=== PATIENT | female | born 1940 | race Caucasian/White ===

== ENCOUNTER 2024-07-15 21:17 | Inpatient (IN) | payer MEDICARE, SELFPAY ==
[2024-07-15] VITALS (15 sets, daily range): BP systolic 79–145; BP diastolic 25–95; BMI 33.3
[2024-07-15 16:48] LABS: Hematocrit 16.8 % (37.0-47.0); Hemoglobin 5.7 g/dL (12.0-16.0); Mean Corp Hgb Conc. 33.9 g/dL (33.0-37.0); Mean Corpuscular Hgb 29.5 pg (27.0-31.0); Mean Platelet Volume 8.7 fL (7.4-10.4); Platelet Count 284 10^3/uL (130-400); Red Blood Cell Count 1.93 10^6/uL (4.20-5.40); Red Cell Dist. Width 16.4 % (11.5-14.5); White Blood Cell Count 12.9 10^3/uL (4.8-10.8)
[2024-07-15 16:56] LABS: ALT (SGPT) 20 U/L (0-35); AST (SGOT) 33 U/L (14-36); Albumin 3.8 g/dl (3.5-5.0); Alkaline Phosphatase 106 U/L (38-126); Blood Urea Nitrogen 59 mg/dl (7-17); Calcium 8.2 mg/dl (8.4-10.2); Carbon Dioxide 23 mmol/L (22-30); Chloride 92 mmol/L (98-107); Glucose 163 mg/dl (70-99); Potassium 4.6 mmol/L (3.5-5.1); Sodium 127 mmol/L (135-145); Total Bilirubin 0.4 mg/dl (0.2-1.3); eGFR 44.91
[2024-07-15 17:09] LABS: Absolute Neutrophils -Man Diff 6.9 10^3/uL (1.4-6.5); Anisocytosis 3+; Atypical Lymphocytes 4 %; Band Neutrophils 0 % (0-3); Eosinophils 2 % (0-6); Lymphocytes 37 % (20-51); Monocytes 3 % (2-9); Normal RBC Morphology No; Nucleated Red Blood Cells 1 (-); Platelets Checked Yes; Polychromasia 2+; Segmented Neutrophils 54 % (42-75)
[2024-07-15 17:11] LABS: Hypochromasia 2+; Total Cells Counted 100
--- NOTE | 2024-07-15 18:42 | ED.GENMED ---
History of Present Illness
General
Chief Complaint: Abnormal Lab Value
Time Seen by Provider: 07/15/24 18:13
History of Present Illness
History of Present Illness:
83-year-old female with history of A-fib on apixaban presenting to the emergency department from [facility] with low hemoglobin. At nursing facility, noted to be 5.8. Patient on arrival denies any acute complaints. Denies chest pain,
difficulty breathing, abdominal pain. She denies seeing any blood in her stool. She denies any known history of blood transfusions, however appears confused on arrival, oriented to person and place only. No additional history obtained at this time
Phy Exam
Physical Exam
Physical Exam:
General: Well-appearing, no clinical signs of dehydration, nontoxic and in no acute distress
HEENT: protecting airway
Neck: appears supple
CV: Normal heart rate, regular rhythm
Resp: No accessory muscle use, no increased work of breathing, lungs clear to auscultation bilaterally
Abd: Soft and non-distended, no tenderness to palpation
Extremities: No deformities, no swelling, no erythema, pulses and sensation intact
Neuro: alert, oriented to person and place
: Melena, Hemoccult positive
Rectal: deferred
Psych: Normal affect
Skin: Intact
Course
Orders/Labs/Results
Orders:
Orders
07/15/24 Dinner
Clear Liquid
07/15/24 16:20
Type And Crossmatch [Type+Screen] Urgent
Complete Blood Count/With Diff Urgent
Comprehensive Metabolic Panel Urgent
Manual Differential Urgent
07/15/24 18:34
ABO2 Routine
BBK Wristband Number:
Associate notified that ABO2 has been ordered: [id number]
Date: 07/15/24
Time: 16:37
Pick And Shovel Man ID: [id number]
07/15/24 18:39
* Blood Bank Products Urgent
Blood Bank Products: *Packed RBC Leuko(PRBC's)
Quantity: 2
Transfuse Today: Yes
Reason: Bleeding
07/15/24 20:25
Admit/Transfer Patient As Directed
Co-Sign Provider:
Level of Care: Inpatient admission
Assign to:: Telemetry
Physician / Group: hospitalist
Diagnosis: anemia
Reason for Telemetry: Other
Other Reason for Telemetry: gi bleed
Date to Stop Telemetry: 07/17/24
Time to Stop Telemetry: 11:00
Reason for Hospitalization: symptomatic anemia
Expected length of stay greater than two midnights?: Yes
ELOS- Estimated Length of Stay in days: 2
I certify the patient meets the requirements for IP care: Yes
PRN Pain Medication Management As Directed
May give lesser potent ordered pain med per pt: Yes
preference::
Protocol:: Medication orders for pain may be administered in a
manner that supports deferring to patient preference
when the pt is:
- Requesting an ordered lesser potent pain medication.
Least to most potent pain medications are defined
as: acetaminophen < NSAID < tramadol < opioids
(morphine, oxycodone, hydromorphone).
- Requesting a lesser dose of the same medication IF
ORDERED.
- Requesting a less intrusive route of administration
if both routes are prescribed by the provider (PO <
IV).
07/15/24 20:28
Code Status As Directed
Resuscitation Status: Full Code
07/15/24 20:31
0.9% Sodium Chloride [Nss (Preservative Free)] 10 ml IV NOW STA
Pantoprazole [Protonix IV] 40 mg IV NOW STA
07/15/24 22:00
Flush (0.9% Sodium Chloride) [Flush (Nss)] See Dose Instructions IV PER PROTOCOL
07/15/24 22:24
Gabapentin [Neurontin] 300 mg PO HS
Ondansetron Injectable [Zofran] 4 mg IV Q6HPRN PRN
Rosuvastatin Calcium [Crestor] 10 mg PO HS
07/15/24 22:24
Osmolality, Random Urine Routine
Urine Sodium Routine
Activity As Directed
Activity Level: With Assistance
Bedside Glucose Monitoring As Directed
Frequency: AC&HS
INT (Intravenous Needle Therapy) As Directed
Comment: Place 2 IV catheters of the largest bore possible until stable
Orthostatic Vital Signs As Directed
Orthostatic VS Frequency: Now
Comment: then every four hours for twenty-four hours
Pneumatic Compression Sleeves As Directed
Type: Knee high
Vital Signs As Directed
Frequency: Per unit guidelines
DX Deep Vein Thrombosis Video Routine
07/16/24 06:00
Basic Metabolic Panel IN AM
Complete Blood Count/No Diff IN AM
Levothyroxine [Synthroid] 75 mcg PO DAILY @ 0600
07/16/24 07:30
Insulin Aspart Corrective Low [Novolog Flexpen-Low Resistance] See Protocol SC AC
07/16/24 08:00
Carvedilol [Coreg] 6.25 mg PO BID
Dapagliflozin [Farxiga] 10 mg PO DAILY
Pantoprazole [Protonix IV] 40 mg IV BID
Pramipexole [Mirapex] 0.125 mg PO BID
07/16/24 12:00
Spironolactone [Aldactone] 12.5 mg PO NOON
07/16/24 14:00
H&H Q8H
07/17/24 11:00
DC Protocol for Telemetry ONCE
Abnormal Lab Results
07/15/24
16:20
WBC 12.9 H 10^3/uL
(4.8-10.8)
RBC 1.93 L 10^6/uL
(4.20-5.40)
Hgb 5.7 L* g/dL
(12.0-16.0)
Hct 16.8 L* %
(37.0-47.0)
RDW 16.4 H %
(11.5-14.5)
Abs Neuts (Manual) 6.9 H 10^3/uL
(1.4-6.5)
Sodium 127 L mmol/L
(135-145)
Chloride 92 L mmol/L
(98-107)
BUN 59 H mg/dl
(7-17)
Creatinine 1.2 H mg/dL
(0.6-1.0)
Glucose 163 H mg/dl
(70-99)
Calcium 8.2 L mg/dl
(8.4-10.2)
Crossmatch IS Only See Detail
07/15/24 16:20
07/15/24 16:20
Vital Signs
Initial and Last Documented VS:
Initial Vital Signs
Temp Pulse Resp BP Pulse Ox
98.1 F 61 18 94/81 100
07/15/24 16:08 07/15/24 16:08 07/15/24 16:08 07/15/24 16:08 07/15/24 16:08
Last Documented Vital Signs
Temp Pulse Resp BP Pulse Ox
97.9 F 61 20 145/53 100
07/15/24 22:45 07/15/24 22:45 07/15/24 22:45 07/15/24 22:45 07/15/24 22:11
MDM/Problems Addressed
MDM/Problems Addressed:
83-year-old female with history of A-fib on apixaban presenting for low hemoglobin from nursing facility. Vital signs on arrival are significant for mildly low blood pressure.
On exam, patient is in no acute distress. Patient had laboratory analysis prior to my assessment, low hemoglobin. On Hemoccult testing, Hemoccult positive, melena. Did discuss with son, who notes that patient was recently admitted to [facility] a few weeks ago, with similar issue, did require transfusion. At that time, her anticoagulation was stopped, and then resumed once she stopped having blood in her stool. He notes that she did not have any colonoscopy at that time because
the bleeding had stopped. Son did consent for patient to be transfused. Consent signed. At this time feel patient warrants admission for GI bleed and anemia. Patient will be admitted to hospital service, likely GI consultation.
*Critical Care Note
Total Time (30-74mins, 75-104mins- exclusive of procedures): 36
comment:
The high probability of a clinically significant, sudden or life threatening deterioration of the hemodynamic system(s) required my full and direct attention, intervention and personal management. The aggregate critical care time was 36 minutes.
This time is in addition to time spent performing reported procedures but includes the following:
[x] Data Review and interpretation
[x] Patient assessment and monitoring of vital signs
[x] Documentation
[x] Medication orders and management
ED Attending Note
-
Portions of this chart may have been created with voice recognition software.� Occasional wrong word or��sound alike� substitutions may have occurred due to the inherent limitations of voice recognition software.
Discharge Plan
Departure
Patient Disposition: Admit
Date of Disposition: 07/15/24
Time of Disposition: 19:07
Presentation/result/management discussed w/ accepting MD/DO: Hospitalist
Patient with high blood pressure during this ER visit?: No
Condition: Fair
Discharge Problem:
Anemia, Melena
Interventions
Interventions:
*Risk Screen - Suicide Last Done: 07/15/24 16:08
*General Assessment Last Done: 07/15/24 16:08
*Neglect/Abuse Screening Last Done: 07/15/24 16:08
*Nursing Disposition Last Done: 07/15/24 22:03
Discharge Date and Time
Discharge Date/Time: 07/15/24 22:06
--- NOTE | 2024-07-15 20:09 | HPS.HSE ---
Family Physician
-
Family Physician: Alex Sandoval MD
Chief Complaint
-
Low hemoglobin from skilled nursing
History of Present Illness
This is an 83-year-old female with past medical history significant for diabetes, atrial fibrillation on apixaban presenting from nursing facility with low hemoglobin. She was found to have a hemoglobin of 5.8 at the nursing facility today.
Patient herself has dementia and alert and oriented to person and place only. She has no acute complaints. She denies feeling dizzy or lightheaded. She denies any chest pain, shortness of breath dyspnea on exertion. She has no personal knowledge
of any melena or hematochezia. She denies any abdominal pain.
Per records it appears that she was admitted at [facility] a few weeks ago with similar low hemoglobin and required transfusion. Anticoagulation was held at that time. There was no colonoscopy or EGD done. Anticoagulation was resumed once
there was no evidence of bloody stool.
In the emergency department yesterday she was afebrile, blood pressure was 108/62 with a pulse of 63 and satting 99% on room air. Hemoglobin was 5.7 on repeat. The rest of 4 CBC was unremarkable. Sodium was 127, BUN 59 creatinine 1.2. Glucose
163.
Medical History
Past Medical History
Past Medical History: Reports Arrhythmia (Proximal atrial fibrillation.), CAD, CHF, HTN, Hypothyroidism and IDDM
Past Surgical History: Reports Other
Social History
Tobacco: Non-smoker
Alcohol: None
Drug: None
Living: [facility]
Employment: Retired
Family History
Family History: Not pertinent
Allergies / Home Medications
Allergies reflects when Allergies were last updated in [employer].
Home Medications with original date entered in [employer]
Allergy/Medication List:
Allergies
Allergy/AdvReac Type Severity Reaction Status Date / Time
No Known Allergies Allergy Unverified 07/15/24 16:07
Home Medications
acetaminophen 325 mg tablet 650 mg PO Q6HPRN PRN mild pain 07/15/24
apixaban 5 mg tablet (Eliquis) 5 mg PO BID 07/15/24
aspirin 81 mg tablet,delayed release 81 mg PO DAILY 07/15/24
bisacodyl 10 mg rectal suppository 10 mg MA DAILYPRN PRN if mom ineffective after 24 hours 07/15/24
bumetanide 2 mg tablet 2 mg PO DAILY 07/15/24
carvedilol 6.25 mg tablet (Coreg) 6.25 mg PO BID 07/15/24
cholecalciferol (vitamin D3) 50 mcg (2,000 unit) tablet (Vitamin D3) 50 mcg PO DAILY 07/15/24
dapagliflozin propanediol 10 mg tablet 10 mg PO DAILY 07/15/24
docusate sodium 100 mg capsule 100 mg PO NOON 07/15/24
gabapentin 300 mg capsule 300 mg PO HS 07/15/24
hydralazine 25 mg tablet 25 mg PO TID 07/15/24
insulin glargine 100 unit/mL subcutaneous solution 6 unit SC HS 07/15/24
insulin lispro 100 unit/mL subcutaneous pen (Humalog KwikPen (U-100) Insulin) 1 sliding scale dose SC ACHS 07/15/24
isosorbide mononitrate 30 mg tablet,extended release 24 hr 30 mg PO DAILY 07/15/24
levothyroxine 75 mcg tablet 75 mcg PO DAILY 07/15/24
magnesium hydroxide 400 mg/5 mL oral suspension (Milk of Magnesia) 30 ml PO [id number] PRN if no bm 3 days 07/15/24
omeprazole 20 mg capsule,delayed release 20 mg PO DAILY 07/15/24
pramipexole 0.125 mg tablet 0.125 mg PO BID 07/15/24
rosuvastatin 10 mg tablet 10 mg PO HS 07/15/24
spironolactone 25 mg tablet 12.5 mg PO NOON 07/15/24
zinc oxide 10 % topical cream 1 applic topical DAILYPRN PRN left buttocks wound 07/15/24
zinc oxide 10 % topical cream 1 applic topical TID left buttocks wound 07/15/24
Review of Systems
-
Constitutional: Reports No Symptoms
EENT: Reports No Symptoms
Respiratory: Reports No Symptoms
Cardiac: Reports No Symptoms
Abdomen/GI: Reports No Symptoms
: Reports No Symptoms
Musculoskeletal: Reports No Symptoms
Skin: Reports No Symptoms
Neurological: Reports No Symptoms
Endocrine: Reports No Symptoms
Hematologic/Lymphatic: Reports No Symptoms
Psych: Reports No Symptoms
Physical Exam
Vital Signs
Vital Signs
Temp Pulse Resp BP Pulse Ox
97.7 F 63 17 108/62 99
07/15/24 20:03 07/15/24 20:03 07/15/24 20:03 07/15/24 20:03 07/15/24 20:03
Physical Exam
General: Well Developed, Well Nourished, No Apparent Distress and Comfortable
HEENT: NormoCephalic, Anicteric, Moist mucous membranes and Atraumatic
Respiratory: Clear
Cardiac: S1/S2 and Regular Rhythm
Breast: Deferred by me
GI: Soft, Non Tender, Non Distended and Normal Bowel Sounds
Rectal: Hem Positive
Genito-urinary: Deferred by me
Musculoskeletal: No Clubbing, No Cyanosis and No Edema
Skin: Warm
Neuro: Awake, Alert and Nonfocal/grossly intact
Hematologic/Lymphatic: No Lymphadenopathy
Psych: Calm
Laboratory Results
-
07/15/24 16:20
07/15/24 16:20
Laboratory Results
Total Bilirubin 0.4 mg/dl (0.2-1.3) 07/15/24 16:20
AST 33 U/L (14-36) 07/15/24 16:20
ALT 20 U/L (0-35) 07/15/24 16:20
Alkaline Phosphatase 106 U/L (38-126) 07/15/24 16:20
Data Reviewed
-
Lab Data: Labs Reviewed by me
Old Records: Reviewed
Impression/Plan
-
IMPRESSION:
Patient on anticoagulation who presented with symptomatic anemia and hemoglobin of 5.8. Appears to have a history of melena/GI bleed while on anticoagulation and was admitted to outside hospital a few weeks ago with similar presentation. No
colonoscopy was done at that time. Anticoagulation interrupted and then restarted once no further evidence of GI bleed.
PLAN:
1. Anemia - Suspect recurrent low grade GI bleed secondary to AC
- admit to telemetry
- clear diet for now
- tranfuse 2 units prbc
- hold aspirin and apixaban
- H&H q 8
- given prior melena will start iv ppi bid for now
- fecal occult testing
- GI consult
2. AFIB
- holding apixaban
- continue carvedilol with hold parameters
3. CHF - Euvolemic on exam
- continue bumex with hold parameters
- continue imdur dialy
- hold hyralazine for now
- continue spironalactone and farxiga
4. DM II
- insulin sliding scale while on clear liquid diet
5. Hyponatremia - Likely chronic no priors here
- check urine studies
- hold bumex
- correct anemia and re-evaluate
DVT PPX - SCD for now
Code status - full code
[2024-07-15] MEDS: NSS (PRESERVATIVE FREE) 10 ML IV (20:51)
[2024-07-15] MEDS: PROTONIX IV 40 MG IV (20:51)
[2024-07-15 23:23] LABS: Glucose - Point of Care 156 mg/dl (70-99)
[2024-07-15] MEDS: CRESTOR 10 MG PO (23:29)
[2024-07-15] MEDS: NEURONTIN 300 MG PO (23:29)
[2024-07-16] VITALS (7 sets, daily range): BP systolic 124–152; BP diastolic 47–62; BMI 33.1
--- NOTE | 2024-07-16 02:06 | VATNOTE ---
Addendum entered by Esperanza Mcdowell RN 07/16/24 02:11:
Nursing Web Retailer aware and if need be will have another nurse from the ER attempt.
Original Note:
07/16 Patient ordered for 2 IV's. Attempted x2 without success. Spoke to PCN who states patient is finished with her blood and does not have any other IV medications until the AM, OK if another IV team nurse attempts on day shift. PCN aware to
call if anything changes and this RN will look again and call nursing food preparation supervisor.
[2024-07-16] MEDS: SYNTHROID 75 MCG PO (05:42)
[2024-07-16 08:05] LABS: Glucose - Point of Care 136 mg/dl (70-99)
[2024-07-16 08:18] LABS: Hematocrit 23.4 % (37.0-47.0); Hemoglobin 8.1 g/dL (12.0-16.0); Mean Corp Hgb Conc. 34.6 g/dL (33.0-37.0); Mean Corpuscular Volume 86.7 fL (81.0-99.0); Mean Platelet Volume 8.9 fL (7.4-10.4); Platelet Count 225 10^3/uL (130-400); Red Cell Dist. Width 14.8 % (11.5-14.5); White Blood Cell Count 8.3 10^3/uL (4.8-10.8)
[2024-07-16 08:52] LABS: Blood Urea Nitrogen 50 mg/dl (7-17); Carbon Dioxide 25 mmol/L (22-30); Chloride 96 mmol/L (98-107); Estimated Creatinine Clearance 36 ml/min; Glucose 123 mg/dl (70-99); Sodium 128 mmol/L (135-145)
[2024-07-16] MEDS: NOVOLOG FLEXPEN-LOW RESISTANCE SC ×2 (09:09→16:38)
[2024-07-16] MEDS: MIRAPEX 0.125 MG PO ×2 (09:10→20:22)
[2024-07-16] MEDS: COREG 6.25 MG PO ×2 (09:10→20:22)
[2024-07-16] MEDS: FARXIGA 10 MG PO (09:10)
[2024-07-16] MEDS: PROTONIX IV 40 MG IV ×2 (09:11→20:23)
[2024-07-16] MEDS: NSS (PRESERVATIVE FREE) 10 ML IV ×2 (09:12→20:24)
--- NOTE | 2024-07-16 10:25 | CM ---
Patient is from [facility] as a Short term Rehab patient for rehab and per liaison will be able to return to SNF when medically appropriate. CM will send updated clinical information to facility. CM will review discharge plan with patient and
family.
--- NOTE | 2024-07-16 11:48 | CON.GI ---
Addendum entered and electronically signed by Padmaja Becker MD 07/16/24 15:58:
I saw and examined the patient.
The ELECTROTYPE MOLDER or PA's note was reviewed and I agree with the note.
Comment: 83-year-old female with history of paroxysmal A-fib on Eliquis, history of dementia, diabetes, CAD, CHF brought in from [facility] with low hemoglobin, noted to have hemoglobin of 5.8. Limited history given underlying
dementia. On reviewing records, evidence of black stool prior to admission and heme positive stool which was, dark in the Emergency room. As per family, patient was admitted to [facility] with similar complaints with low hemoglobin, endoscopy
evaluation was not pursued, hemoglobin stabilized and she was subsequently started back on the anticoagulation with Eliquis. Possible remote history of colonoscopy but unclear findings or timing. She received 2 units of packed red blood cells and
her hemoglobin currently is up at 8.6.
Patient is currently on clear liquid diet and tolerating it well.
-Anemia with heme positive black stool, rule out ulcer disease, AVMs, colon polyps versus other
Continue Protonix 40 mg IV twice daily
Continue clear liquid diet for now
She will need upper endoscopy after Eliquis washout (unclear when the last dose was but patient arrived 07/15/2024)
Patient's son Gene will be in tomorrow and will be discussing with patient as well and will get back to us regarding decision for endoscopy evaluation.
Monitor H&H and transfuse if hemoglobin less than 8.0.
Sodium level monitored by primary team
Will follow
Original Note:
Consultation
-
Date/Time Consultation Requested: 07/16/24 1015
Date/Time Consultation Performed: 07/16/24 1145
Requesting Provider: Johnathon Yoon MD
Performing Provider: VICKIE Aragon
Reason for Consultation: GI bleed
Medical History
Chief Complaint / HPI
Chief Complaint: anemia
History of Present Illness:
Pt is an 83yo with hx PAF on Eliquis, CAD, CHF, HTN, hypothyroidism, IDDM, dementia with noted hbg 5.8 on SNF. pt was given 2 units PRBC's and noted hbg 8.1 today with na 127, BUN 59, creat 1.3. Pt was also noted with hyponatremia on admission.
Stool in ER with Melena/heme +and brown/black stool small amount since admission. No prior admission to . Per chart prior admission to [facility] with with low hbg and transfusion. Per family he bleeding had stopped and anticoagulation was
restarted. Per family Eliquis may have started in May. Family unsure about prior GI testing. Pt states distant hx colonoscopy in past. Pt currently denies GI symptom of odynophagia, dysphagia, GERD, abdominal pain, diarrhea, constipation,
blood or black in stools.
Past Medical History
Past Medical History: Arrhythmias (afib ), CAD, CHF, HTN, Hypothyroidism, IDDM and Psychiatric (dementia )
Social History
Tobacco: Non-Smoker
Alcohol: None
Drug: None
Living: Half-Way
Employment: Retired
Family History
Family History: Other (pt denies family hx GI issues )
Allergies / Home Medications
Allergy/AdvReac Type Severity Reaction Status Date / Time
No Known Allergies Allergy Unverified 07/15/24 16:07
�Medication �Instructions �Recorded
acetaminophen 325 mg tablet 650 mg PO Q6HPRN PRN mild pain 07/15/24
apixaban 5 mg tablet (Eliquis) 5 mg PO BID Blood Clot 07/15/24
Prevention/Tx
aspirin 81 mg tablet,delayed 81 mg PO DAILY Blood Clot 07/15/24
release Prevention/Tx
bisacodyl 10 mg rectal suppository 10 mg [place] DAILYPRN PRN if mom 07/15/24
ineffective after 24 hours
bumetanide 2 mg tablet 2 mg PO DAILY Fluid 07/15/24
Retention/Swelling
carvedilol 6.25 mg tablet (Coreg) 6.25 mg PO BID Heart 07/15/24
Disease/Condition
cholecalciferol (vitamin D3) 50 50 mcg PO DAILY Supplement 07/15/24
mcg (2,000 unit) tablet (Vitamin
D3)
dapagliflozin propanediol 10 mg 10 mg PO DAILY Diabetes 07/15/24
tablet
docusate sodium 100 mg capsule 100 mg PO NOON Constipation 07/15/24
gabapentin 300 mg capsule 300 mg PO HS 07/15/24
hydralazine 25 mg tablet 25 mg PO TID Blood Pressure 07/15/24
insulin glargine 100 unit/mL 6 unit SC HS Diabetes 07/15/24
subcutaneous solution
insulin lispro 100 unit/mL 1 sliding scale dose SC ACHS 07/15/24
subcutaneous pen (Humalog KwikPen Diabetes
(U-100) Insulin)
isosorbide mononitrate 30 mg 30 mg PO DAILY Heart 07/15/24
tablet,extended release 24 hr Disease/Condition
levothyroxine 75 mcg tablet 75 mcg PO DAILY Thyroid 07/15/24
magnesium hydroxide 400 mg/5 mL 30 ml PO [id number] PRN if no bm 3 07/15/24
oral suspension (Milk of Magnesia) days
omeprazole 20 mg capsule,delayed 20 mg PO DAILY Gastrointestinal 07/15/24
release Issue
pramipexole 0.125 mg tablet 0.125 mg PO BID Neurological 07/15/24
Condition
rosuvastatin 10 mg tablet 10 mg PO HS High Cholesterol 07/15/24
spironolactone 25 mg tablet 12.5 mg PO NOON Fluid 07/15/24
Retention/Swelling
zinc oxide 10 % topical cream 1 applic topical DAILYPRN PRN left 07/15/24
buttocks wound
zinc oxide 10 % topical cream 1 applic topical TID left buttocks 07/15/24
wound
Review of Systems
-
Unable to obtain full review of systems at this time due to: Dementia
History Source: Patient and Family
Constitutional: Reports No Symptoms
EENT: Reports No Symptoms
Respiratory: Reports No Symptoms
Cardiac: Reports No Symptoms
Abdomen/GI: Reports Black Stools
: Reports No Symptoms
Musculoskeletal: Reports No Symptoms
Neurological: Reports Weakness
Endocrine: Reports No Symptoms
Hematologic/Lymphatic: Reports Bleeding
Vital Signs
Temp Pulse Resp BP Pulse Ox
98.9 F 61 20 124/56 100
07/16/24 07:45 07/16/24 07:45 07/16/24 07:45 07/16/24 07:45 07/16/24 07:45
Physical Exam
Exam
General: Well Developed, Well Nourished and No Apparent Distress
HEENT: Normocephalic and Anicteric
Respiratory: Clear
Cardiac: Regular Rhythm and Murmur
GI: Soft, Non Tender and Non Distended
Musculoskeletal: No Clubbing and No Cyanosis
Skin: Warm and Dry
Neuro: Awake, Alert and Other (hx dementia but answering most questions appropriately )
Psych: Calm
Results
WBC 8.3 10^3/uL (4.8-10.8) 07/16/24 06:43
Hgb 8.1 g/dL (12.0-16.0) L D 07/16/24 06:43
Hct 23.4 % (37.0-47.0) L 07/16/24 06:43
MCV 86.7 fL (81.0-99.0) 07/16/24 06:43
Plt Count 225 10^3/uL (130-400) D 07/16/24 06:43
Sodium 128 mmol/L (135-145) L 07/16/24 06:43
Potassium 4.0 mmol/L (3.5-5.1) 07/16/24 06:43
Chloride 96 mmol/L (98-107) L 07/16/24 06:43
Carbon Dioxide 25 mmol/L (22-30) 07/16/24 06:43
BUN 50 mg/dl (7-17) H 07/16/24 06:43
Creatinine 1.3 mg/dL (0.6-1.0) H 07/16/24 06:43
Calcium 8.0 mg/dl (8.4-10.2) L 07/16/24 06:43
Total Bilirubin 0.4 mg/dl (0.2-1.3) 07/15/24 16:20
AST 33 U/L (14-36) 07/15/24 16:20
ALT 20 U/L (0-35) 07/15/24 16:20
Alkaline Phosphatase 106 U/L (38-126) 07/15/24 16:20
Diagnostic Image Results:
Prior GI Procedures:
EGD: none
Colonoscopy: ? years ago
Assessment / Plan
-
Pt is an 83yo with hx PAF on Eliquis, CAD, CHF, HTN, hypothyroidism, IDDM, dementia with noted hbg 5.8 on SNF. pt was given 2 units PRBC's and noted hbg 8.1 today with na 127, BUN 59, creat 1.3. Pt was also noted with hyponatremia on admission.
Stool in ER with Melena/heme +and brown/black stool small amount since admission. No prior admission to . Per chart prior admission to [facility] with with low hbg and transfusion. Per family he bleeding had stopped and anticoagulation was
restarted. Per family Eliquis may have started in May. Family unsure about prior GI testing. Pt states distant hx colonoscopy in past. Pt currently denies GI symptom of odynophagia, dysphagia, GERD, abdominal pain, diarrhea, constipation,
blood or black in stools.
-anemia with black stool in ER
-PAF on Eliquis / newly added in May per family
-hyponatremia
other med problems:
-CAD
-CHF
-HTN
-Hypothyroidism
-IDDM
-dementia
PLAN:
etiology of anemia with dark stool and elevated BUN related to UGI bleeding with ? newly added Eliquis - PUD, ectasia, mass vs lower GI source vs other
pt currently declined GI testing but noted with hx dementia
I reviewed wtih son Gene -- he will be in tomorrow to review with patient
I discussed with son options of scope EGD +/- colon vs hold Anticoagulation with risks vs cont to follow hbg and high risk for return
cont Eliquis wash out last dose 07/15 at [facility]
cont PPI BID
monitor stools
cont to correct Na per medical team prior to possible GI testing
will follow
-
-
Thank you for consultation and allowing me to participate in the patient's care. Please call the operations supervisor 2nd shift GI physician during the after hours with any questions or concerns.
[2024-07-16 13:09] LABS: Glucose - Point of Care 202 mg/dl (70-99)
--- NOTE | 2024-07-16 13:10 | CM ---
Patient seen at bedside. Patient is a Short term care patient at [facility]. CM spoke with liaison at [place] and confirmed that patient is short term care, and can return when medically appropriate, pending bed. Patient son confirmed that patient
can return to SNF when medically appropriate and liaison also confirmed. CM will send updated clinical information via all scripts. Patient original home was a 2 story home with a first floor set up. no steps to enter, 1st floor shower- walk in and
stair lift. Patient son confirmed plan is to go back to [facility] for short term rehab. CM will continue to follow for discharge planning needs.
Plan; return to [facility]; call to confirm bed availability.
[2024-07-16] MEDS: ALDACTONE 12.5 MG PO (13:18)
[2024-07-16] MEDS: NOVOLOG FLEXPEN-LOW RESISTANCE 2 UNITS SC (13:19)
[2024-07-16 14:49] LABS: Hematocrit 25.3 % (37.0-47.0); Hemoglobin 8.6 g/dL (12.0-16.0)
--- NOTE | 2024-07-16 14:54 | W.PN.HOSP.TC ---
Today's Communication/Plan
-
Clear liquid diet
Monitor hemoglobin.
IV PPI.
Hold Eliquis pending GI evaluation.
Assessment / Plan
Assessment / Plan
Impression
Presented from nursing facility with low hemoglobin
Anemia suspected secondary to low-grade GI hemorrhage secondary to anticoagulation with Eliquis
Hyponatremia
Other conditions:
Paroxysmal atrial fibrillation baseline anticoagulation with Eliquis
CAD.
CHF unknown EF.
Essential hypertension
Hypothyroidism
Insulin requiring diabetes.
Dementia unknown type
Plan:
Anemia likely due to low-grade gastrointestinal hemorrhage secondary to anticoagulation with Eliquis.
Recently admitted to outside hospital and declined endoscopy. Required transfusion.
Appropriate response to transfusion this admission.
Hold aspirin and Plavix anticipating GI evaluation.
Monitor hemoglobin.
Continue PPI empirically.
Most likely will require upper endoscopy and if negative colonoscopy evaluation
Discussed with gastroenterology
Paroxysmal atrial fibrillation baseline rate controlled.
Continue Coreg.
Hold apixaban.
CHF unknown type.
Euvolemic on exam.
CAD by history.
Continue Coreg, Imdur, spironolactone, hold Bumex and Farxiga
Hyponatremia
'If she has CKD creatinine 1.3 upon presentation.
Hold Bumex.
Reassess volume status and sodium level after transfusion.
Type 2 diabetes
Hemoglobin A1c.
Hold insulin
Basal bolus protocol
Hold Farxiga acutely.
Full code
DVT prophylaxis mechanical
Anticipated Discharge: > 48 hours
Subjective/Interval History
-
Date of Service: July 16, 2024
Objective Data
-
Labs:
Laboratory Results
07/16/24 07/16/24
06:43 14:34
WBC 8.3
Hgb 8.1 L D 8.6 L
Hct 23.4 L 25.3 L
Plt Count 225 D
Sodium 128 L
Potassium 4.0
Chloride 96 L
Carbon Dioxide 25
BUN 50 H
Creatinine 1.3 H
Glucose 123 H
Calcium 8.0 L
Vital Signs:
Vital Signs
Temp Pulse Resp BP Pulse Ox
97.3 F 60 24 136/60 97
07/16/24 11:54 07/16/24 11:54 07/16/24 11:54 07/16/24 11:54 07/16/24 11:54
I&O
07/15/24 07/16/24 07/17/24
06:59 06:59 06:59
Intake Total 980 / 980
Balance 980 / 980
Physical Exam
-
General: Well Developed and No Apparent Distress
HEENT: Normocephalic, Atraumatic and Moist Mucous Membranes
Respiratory: Clear to Auscultation
Cardiac: Regular Rhythm and S1/S2; Negative Murmur, Rub or Gallop
GI: Soft, Nontender, Nondistended and Normal Bowel Sounds; Negative Organomegaly
Rectal: Deferred by Provider
Musculoskeletal: No Clubbing, No Cyanosis and No Edema
Skin: Negative Rash
Neuro: Nonfocal/Grossly Intact
[2024-07-16 16:13] LABS: Glucose - Point of Care 115 mg/dl (70-99)
[2024-07-16] MEDS: CRESTOR 10 MG PO (21:52)
[2024-07-16] MEDS: NEURONTIN 300 MG PO (21:52)
[2024-07-17 03:33] VITALS: BP 142/71
[2024-07-17] MEDS: SYNTHROID 75 MCG PO (06:01)
[2024-07-17 07:00] VITALS: BP 136/114
--- NOTE | 2024-07-17 08:17 | W.PN.HOSP.TC ---
Today's Communication/Plan
-
Await family decision
Await labs
Assessment / Plan
Assessment / Plan
Gen-AAOx3, NAD obese
HEENT-NC, AT, anicteric, clear oral mm
Neck-supple
CV-reg, no M, +S1/S2
Lungs-clear B/L
Abd-soft, NT, ND, umbilical hernia
Ext-no edema
Musculoskeletal-no cyanosis, clubbing
Skin-warm and dry
Neuro-grossly non-focal
Psych-calm, cooperative
Acute blood loss anemia -due to acute GI bleed. Hemodynamically stable. Admission hemoglobin 5.7. Baseline unknown. Hemoglobin improved after 2 units PRBC, CBC pending for today.
Acute GI bleed -unclear source. Suspect upper GI bleed given BUN 59 on admission. GI service consulted, awaiting decision from family regarding invasive testing including EGD.
Currently on clear liquids.
Recent admission to outside hospital for GI bleed. Transfused. Endoscopic evaluation not completed due to patient and family preference.
Hyponatremia -unknown etiology. Labs pending for today. Check urine studies, TSH, cortisol.
Paroxysmal atrial fibrillation -hold Eliquis due to acute GI bleed, acute anemia.
CAD -stable.
Chronic CHF unknown EF -stable.
Essential hypertension -stable.
Hypothyroidism -continue levothyroxine.
DM2 without hyperglycemia -she is on Farxiga 10 mg daily, glargine 60 units at bedtime, Humalog sliding scale in the assisted.
Renal insufficiency -suspect CKD 3B. Baseline creatinine unknown. Monitor for now.
Hyperlipidemia -rosuvastatin.
Dementia unknown type
Full code
Dispo -back to assisted when medically stable.
l
Anticipated Discharge: 24 - 48 hours
Subjective/Interval History
-
Date of Service: July 17, 2024
Patient seen and examined. No complaints.
Objective Data
-
Labs:
Laboratory Results
07/17/24
07:11
WBC Pending
Hgb Pending
Hct Pending
Plt Count Pending
Sodium Pending
Potassium Pending
Chloride Pending
Carbon Dioxide Pending
BUN Pending
Creatinine Pending
Glucose Pending
Calcium Pending
Vital Signs:
Vital Signs
Temp Pulse Resp BP Pulse Ox
97.8 F 61 14 142/71 96
07/17/24 03:33 07/17/24 03:33 07/17/24 03:33 07/17/24 03:33 07/17/24 03:33
I&O
07/16/24 07/17/24 07/18/24
06:59 06:59 06:59
Intake Total 980 / 980 1680 / 1680
Balance 980 / 980 1680 / 1680
Review of Systems
-
Unable to obtain full review of systems at this time due to: Language Barrier
History Source: Patient
All other systems: Reviewed and negative
[2024-07-17 08:19] LABS: % Basophils 0.7 % (0-2); % Eosinophils 6.2 % (0-6); % Immature Granulocytes 0.9 % (0-0.5); % Lymphocytes 41.9 % (20.5-51.1); % Monocytes 7.7 % (1.7-9.3); % Neutrophils 42.6 % (42.2-75.2); Absolute Basophils 0.1 10^3/uL (0-0.2); Absolute Eosinophils 0.4 10^3/uL (0-0.7); Absolute Immature Granulocytes 0.1 10^3/uL (0-0.05); Absolute Lymphocytes 2.8 10^3/uL (1.2-3.4); Absolute Monocytes 0.5 10^3/uL (0.1-0.6); Absolute Neutrophils 2.9 10^3/uL (1.4-6.5); Hematocrit 25.6 % (37.0-47.0); Hemoglobin 8.6 g/dL (12.0-16.0); Mean Corp Hgb Conc. 33.6 g/dL (33.0-37.0); Mean Corpuscular Hgb 30.3 pg (27.0-31.0); Mean Corpuscular Volume 90.1 fL (81.0-99.0); Mean Platelet Volume 8.8 fL (7.4-10.4); Nucleated Red Blood Cells % 0.6 %; Platelet Count 226 10^3/uL (130-400); Red Blood Cell Count 2.84 10^6/uL (4.20-5.40); Red Cell Dist. Width 15.2 % (11.5-14.5); White Blood Cell Count 6.8 10^3/uL (4.8-10.8)
[2024-07-17 08:27] LABS: Blood Urea Nitrogen 35 mg/dl (7-17); Calcium 8.5 mg/dl (8.4-10.2); Carbon Dioxide 26 mmol/L (22-30); Chloride 99 mmol/L (98-107); Estimated Creatinine Clearance 39 ml/min; Glucose 125 mg/dl (70-99); Sodium 134 mmol/L (135-145); eGFR 44.91
[2024-07-17 08:51] LABS: Glucose - Point of Care 124 mg/dl (70-99)
[2024-07-17] MEDS: NOVOLOG FLEXPEN-LOW RESISTANCE SC (09:27)
[2024-07-17] MEDS: NSS (PRESERVATIVE FREE) 10 ML IV ×2 (09:56→20:26)
[2024-07-17] MEDS: COREG 6.25 MG PO (09:56)
[2024-07-17] MEDS: PROTONIX IV 40 MG IV ×2 (09:56→20:26)
[2024-07-17] MEDS: FLUSH (NSS) 2 FLUSH IV (10:01)
[2024-07-17] MEDS: MIRAPEX 0.125 MG PO ×2 (10:04→20:26)
[2024-07-17] MEDS: IMDUR (EXTENDED RELEASE) 30 MG PO (10:04)
--- NOTE | 2024-07-17 10:06 | W.PN.GI.CBS2 ---
Today's Communication / Plan
-
Hemoglobin stable. Await decision by son Lalit on whether to monitor vs. pursue EGD.
Assessment / Plan
-
83-year-old female with history of paroxysmal A-fib on Eliquis, history of dementia, diabetes, CAD, CHF brought in from [facility] with low hemoglobin, noted to have hemoglobin of 5.8. Limited history given underlying dementia. On
reviewing records, evidence of black stool prior to admission and heme positive stool which was, dark in the Emergency room. As per family, patient was admitted to [facility] with similar complaints with low hemoglobin, endoscopy evaluation was
not pursued, hemoglobin stabilized and she was subsequently started back on the anticoagulation with Eliquis. Possible remote history of colonoscopy but unclear findings or timing. She received 2 units of packed red blood cells and hemoglobin
improved to 8.6, repeat this morning was stable at 8.6. She has no signs of overt GI bleeding.
Patient is currently on clear liquid diet and tolerating it well.
-Anemia with heme positive black stool, rule out ulcer disease, AVMs, colon polyps versus other
Continue Protonix 40 mg IV twice daily
Continue clear liquid diet for now pending disucssion with son (Lalit) later today.
She will need upper endoscopy after Eliquis washout (unclear when the last dose was but patient arrived 07/15/2024)
Patient's son Lalit will be in today and will be discussing with patient as well and will get back to us regarding decision for endoscopy evaluation.
Monitor H&H and transfuse if hemoglobin less than 8.0.
Na improving, 134 today from 128.
Subjective
Subjective
Date of Service: July 17, 2024
Patient seen in follow-up, offers no comlaints. Hemoglobin stable at 8.6. Discussed EGD with her, she prefers to monitor without any procedures. She has dementia, son (Lalit) helps with decision making, spoke with Dr. Becker yesterday. Will touch
base with Lalit later today, as he is planning to come visit his mother and will discuss with her.
Objective
Data Reviewed
Laboratory Data:
Laboratory Results
07/17/24 07:11
07/17/24 07:11
Laboratory Results
Total Bilirubin 0.4 mg/dl (0.2-1.3) 07/15/24 16:20
AST 33 U/L (14-36) 07/15/24 16:20
ALT 20 U/L (0-35) 07/15/24 16:20
Alkaline Phosphatase 106 U/L (38-126) 07/15/24 16:20
Vital Signs and I&O:
Vital Signs
Temp Pulse Resp BP Pulse Ox
98.0 F 68 19 142/71 98
07/17/24 07:00 07/17/24 07:00 07/17/24 07:00 07/17/24 03:33 07/17/24 07:00
I&O
07/16/24 07/17/24 07/18/24
06:59 06:59 06:59
Intake Total 980 / 980 1680 / 1680
Balance 980 / 980 1680 / 1680
Physical Exam
Physical Exam
GI: Soft, Non Distended and Non Tender
[2024-07-17 11:40] LABS: Glucose - Point of Care 173 mg/dl (70-99)
[2024-07-17 12:24] LABS: Cortisol, Random 12.6 ug/dl
[2024-07-17] MEDS: NOVOLOG FLEXPEN-LOW RESISTANCE 1 UNITS SC ×2 (12:38→16:08)
[2024-07-17] MEDS: ALDACTONE 12.5 MG PO (12:41)
[2024-07-17 13:11] LABS: Free T4 1.35 ng/dl (0.78-2.19)
[2024-07-17 15:00] VITALS: BP 127/46
[2024-07-17 16:07] LABS: Glucose - Point of Care 167 mg/dl (70-99)
--- NOTE | 2024-07-17 16:28 | W.PN.UPDATE ---
Update Note
Progress Note Update
Spoke wtih POA, Son, Gene regarding hemoglobin and recommendations for EGD. He spoke to his mother today and now would like to pursue EGD tomorrow. Discussed risk/benefits of procedure, all questionsd answered. NPO for EGD tomorrow. Last dose
tejas 07/15.
[2024-07-17 19:32] VITALS: BP 87/65
[2024-07-17] MEDS: COREG PO (19:44)
[2024-07-17] MEDS: CRESTOR 10 MG PO (20:26)
[2024-07-17] MEDS: NEURONTIN 300 MG PO (20:26)
[2024-07-17 21:42] LABS: Glucose - Point of Care 119 mg/dl (70-99)
[2024-07-17 23:31] VITALS: BP 144/51
[2024-07-18] VITALS (10 sets, daily range): BP systolic 15–128; BP diastolic 44–55; PULSE 61; BMI 32.8
[2024-07-18] MEDS: SYNTHROID 75 MCG PO (05:36)
[2024-07-18 07:14] LABS: Glucose - Point of Care 116 mg/dl (70-99)
[2024-07-18] MEDS: PROTONIX IV 40 MG IV (08:20)
[2024-07-18] MEDS: IMDUR (EXTENDED RELEASE) 30 MG PO (08:20)
[2024-07-18] MEDS: COREG 6.25 MG PO (08:20)
[2024-07-18] MEDS: NSS (PRESERVATIVE FREE) 10 ML IV (08:20)
[2024-07-18] MEDS: MIRAPEX 0.125 MG PO (08:20)
[2024-07-18] MEDS: NOVOLOG FLEXPEN-LOW RESISTANCE SC ×3 (08:22→17:30)
[2024-07-18 08:38] LABS: % Basophils 0.8 % (0-2); % Eosinophils 5.4 % (0-6); % Immature Granulocytes 1.3 % (0-0.5); % Lymphocytes 44.9 % (20.5-51.1); % Monocytes 8.9 % (1.7-9.3); % Neutrophils 38.7 % (42.2-75.2); Absolute Basophils 0.1 10^3/uL (0-0.2); Absolute Eosinophils 0.4 10^3/uL (0-0.7); Absolute Immature Granulocytes 0.1 10^3/uL (0-0.05); Absolute Lymphocytes 3.2 10^3/uL (1.2-3.4); Absolute Monocytes 0.6 10^3/uL (0.1-0.6); Absolute Neutrophils 2.8 10^3/uL (1.4-6.5); Hematocrit 26.6 % (37.0-47.0); Hemoglobin 8.5 g/dL (12.0-16.0); Mean Corpuscular Hgb 29.6 pg (27.0-31.0); Mean Corpuscular Volume 92.7 fL (81.0-99.0); Mean Platelet Volume 8.6 fL (7.4-10.4); Nucleated Red Blood Cells % 0 %; Platelet Count 231 10^3/uL (130-400); Red Blood Cell Count 2.87 10^6/uL (4.20-5.40); Red Cell Dist. Width 15.3 % (11.5-14.5); White Blood Cell Count 7.2 10^3/uL (4.8-10.8)
--- NOTE | 2024-07-18 10:13 | W.PN.UPDATE ---
Update Note
Progress Note Update
EGD negative
spoke to son. wants mother back at rehab as soon as able and does not want to pursue other endoscopic studies
will sign off call with questions.
[2024-07-18 10:40] LABS: Blood Urea Nitrogen 29 mg/dl (7-17); Calcium 8.5 mg/dl (8.4-10.2); Carbon Dioxide 24 mmol/L (22-30); Chloride 98 mmol/L (98-107); Estimated Creatinine Clearance 43 ml/min; Glucose 115 mg/dl (70-99); Potassium 4.1 mmol/L (3.5-5.1); Sodium 133 mmol/L (135-145); eGFR 49.86
[2024-07-18 12:05] LABS: Glucose - Point of Care 132 mg/dl (70-99)
[2024-07-18] MEDS: ALDACTONE 12.5 MG PO (12:53)
--- NOTE | 2024-07-18 14:22 | W.PN.HOSP.TC ---
Addendum entered and electronically signed by Daquan Mckeon DO 07/18/24 16:22:
Stage 2 left buttock pressure injury, POA
Original Note:
Today's Communication/Plan
-
Discharge
Assessment / Plan
Assessment / Plan
Gen-AAOx3, NAD obese
HEENT-NC, AT, anicteric, clear oral mm
Neck-supple
CV-reg, no M, +S1/S2
Lungs-clear B/L
Abd-soft, NT, ND, umbilical hernia
Ext-no edema
Musculoskeletal-no cyanosis, clubbing
Skin-warm and dry
Neuro-grossly non-focal
Psych-calm, cooperative
Acute blood loss anemia -due to acute GI bleed. Hemodynamically stable. Admission hemoglobin 5.7. Baseline unknown. Hemoglobin improved after 2 units PRBC, 8.5 today and stable.
Acute GI bleed -unclear source. Suspect upper GI bleed given BUN 59 on admission.
Recent admission to outside hospital for GI bleed. Transfused. Endoscopic evaluation not completed due to patient and family preference.
EGD completed today, esophagus, stomach, duodenum were normal.
Patient not interested in pursuing colonoscopy. I spoke with the patient's son on the phone and he does not want to pursue colonoscopy at this juncture. He is open to outpatient colonoscopy in the next few weeks if his mother changes her mind. He
understands that there is a high risk of rebleeding and recurrent anemia with resumption of anticoagulation, antiplatelet therapy. Patient's son prefers to get her discharge back to rehab today with outpatient GI follow-up.
Hyponatremia -unknown etiology. Sodium improved.
Paroxysmal atrial fibrillation -resume Eliquis.
CAD -stable. Resume aspirin.
Chronic CHF unknown EF -stable.
Essential hypertension -stable.
Hypothyroidism -continue levothyroxine. TSH 5.6, free T4 normal.
DM2 without hyperglycemia -she is on Farxiga 10 mg daily, glargine 60 units at bedtime, Humalog sliding scale in the snf.
Renal insufficiency -suspect CKD 3B. Baseline creatinine unknown. Monitor for now.
Hyperlipidemia -rosuvastatin.
Dementia unknown type
Full code
Dispo -stable for discharge back to SNF. Case management aware.
35 minutes spent in discharge process.
l
Anticipated Discharge: Today
Subjective/Interval History
-
Date of Service: July 18, 2024
Patient seen and examined. No complaints.
Objective Data
-
Labs:
Laboratory Results
07/18/24
06:39
WBC 7.2
Hgb 8.5 L
Hct 26.6 L
Plt Count 231
Sodium 133 L
Potassium 4.1
Chloride 98
Carbon Dioxide 24
BUN 29 H
Creatinine 1.1 H
Glucose 115 H
Calcium 8.5
Vital Signs:
Vital Signs
Temp Pulse Resp BP Pulse Ox
97.7 F 61 18 106/55 95
07/18/24 11:52 07/18/24 11:52 07/18/24 11:52 07/18/24 11:52 07/18/24 11:52
I&O
07/17/24 07/18/24 07/19/24
06:59 06:59 06:59
Intake Total 1680 / 1680 480 / 480
Balance 1680 / 1680 480 / 480
Review of Systems
-
History Source: Patient
All other systems: Reviewed and negative
--- NOTE | 2024-07-18 14:38 | W.DS.TRANS ---
DC Summary - [employer]
-
Discharge Instructions:
Discharge Diagnosis/Procedures Acute blood loss anemia, GI bleed
Diet Diabetic, Carb Controlled
Activity As tolerated,With assistance
Driving Restrictions No driving
Bathing Restrictions None
Instructions:
Stand-Alone Forms:
Changes to Home Medications: No
Discharge Medications:
DC Medications w/original date entered in [facility]
acetaminophen 325 mg tablet 650 mg PO Q6HPRN PRN mild pain 07/15/24
apixaban 5 mg tablet (Eliquis) 5 mg PO BID Blood Clot Prevention/Tx 07/15/24
aspirin 81 mg tablet,delayed release 81 mg PO DAILY Blood Clot Prevention/Tx 07/15/24
bisacodyl 10 mg rectal suppository 10 mg GA DAILYPRN PRN if mom ineffective after 24 hours 07/15/24
bumetanide 2 mg tablet 2 mg PO DAILY Fluid Retention/Swelling 07/15/24
carvedilol 6.25 mg tablet (Coreg) 6.25 mg PO BID Heart Disease/Condition 07/15/24
cholecalciferol (vitamin D3) 50 mcg (2,000 unit) tablet (Vitamin D3) 50 mcg PO DAILY Supplement 07/15/24
dapagliflozin propanediol 10 mg tablet 10 mg PO DAILY Diabetes 07/15/24
docusate sodium 100 mg capsule 100 mg PO NOON Constipation 07/15/24
gabapentin 300 mg capsule 300 mg PO HS 07/15/24
hydralazine 25 mg tablet 25 mg PO TID Blood Pressure 07/15/24
insulin glargine 100 unit/mL subcutaneous solution 6 unit SC HS Diabetes 07/15/24
insulin lispro 100 unit/mL subcutaneous pen (Humalog KwikPen (U-100) Insulin) 1 sliding scale dose SC ACHS Diabetes 07/15/24
isosorbide mononitrate 30 mg tablet,extended release 24 hr 30 mg PO DAILY Heart Disease/Condition 07/15/24
levothyroxine 75 mcg tablet 75 mcg PO DAILY Thyroid 07/15/24
magnesium hydroxide 400 mg/5 mL oral suspension (Milk of Magnesia) 30 ml PO [id number] PRN if no bm 3 days 07/15/24
omeprazole 20 mg capsule,delayed release 20 mg PO DAILY Gastrointestinal Issue 07/15/24
pramipexole 0.125 mg tablet 0.125 mg PO BID Neurological Condition 07/15/24
rosuvastatin 10 mg tablet 10 mg PO HS High Cholesterol 07/15/24
spironolactone 25 mg tablet 12.5 mg PO NOON Fluid Retention/Swelling 07/15/24
zinc oxide 10 % topical cream 1 applic topical DAILYPRN PRN left buttocks wound 07/15/24
zinc oxide 10 % topical cream 1 applic topical TID left buttocks wound 07/15/24
Home Medication Changes
Pending Results: No
--- NOTE | 2024-07-18 14:42 | CM ---
CM reviewed chart, spoke with patients son, Lalit. Per son, would like patient to return to [facility] for rehab. Son reports he has already spoken with [facility] and they are anticipating patient today. Referral placed in [facility],
confirmed with Safia in admissions patient is for short term rehab, able to accept. Per son, patient will need ambulance transport. IMM reviewed verbally, agreeable to discharge plan, copy placed in chart. CM will continue to follow for all
discharge planning needs.
Plan; return to [facility] SNF, ambulance transport 5 pm
[facility]
Report: [phone]
--- NOTE | 2024-07-18 14:47 | PN.CDI ---
CDI
- -
CDI:
Physician Documentation Request
Admit Date: 07/15/24 21:17
Dear Doctor Mike,
Please review the following and provide your response in the progress notes.
Clinical Indicators:
- RN skin assessments indicate Stage 2 left buttock pressure injury, POA
Physician documentation of the type and location of wounds is required for compliant documentation. Based on the above clinical findings and your assessment, please provide the following in your progress note:
1. Location of the ulcer/wound, including laterality.
2. Type (etiology) of ulcer/wound:
- Diabetic ulcer
- Arterial (ischemic) ulcer
- Traumatic wound
- Venous stasis ulcer
- Pressure (decubitus) ulcer
- Non-healing surgical wound
- Other
- Unable to determine
Use of terms such as suspected, likely, concern for, or probable (associated with a specific diagnosis that is being evaluated, monitored, or treated as if it exists) are acceptable and can be coded in the inpatient setting, when documented at the
time of discharge.
Thank you,
Thelma Johnson RN
CDI Specialist
Please use your independent medical judgment in providing your response.
*Source: National Pressure Ulcer Advisory Panel (NPUAP)
[2024-07-18 16:48] LABS: Glucose - Point of Care 453 mg/dl (70-99)
[2024-07-18 17:52] LABS: Glucose 122 mg/dl (70-99)
== END 2024-07-18 17:35 | DRG 378 ==
LOC: 4 WEST ACU 21:17
PROVIDERS: Emergency Medicine; Internal Medicine; ADMITTING PHYSICIAN Internal Medicine; ATTENDING PHYSICIAN Hospitalist; CONSULT PHYSICIAN Internal Medicine Gastroenterology; EMERGENCY PHYSICIAN Student in an Organized Health Care Education/Training Program; FAMILY PHYSICIAN Internal Medicine
PROC: 30233N1 Transfusion of Nonautologous Red Blood Cells into Peripheral Vein, Percutaneous Approach (ICD-10-PCS; 2024-07-15)
PROC: 0DJ08ZZ Inspection of Upper Intestinal Tract, Via Natural or Artificial Opening Endoscopic (ICD-10-PCS; 2024-07-18)
DX: K92.2 Gastrointestinal hemorrhage, unspecified (principal); D62 Acute posthemorrhagic anemia; E87.1 Hypo-osmolality and hyponatremia; D68.32 Hemorrhagic disorder due to extrinsic circulating anticoagulants; L89.322 Pressure ulcer of left buttock, stage 2; Z79.01 Long term (current) use of anticoagulants; E11.9 Type 2 diabetes mellitus without complications; F03.90 Unspecified dementia, unspecified severity, without behavioral disturbance, psychotic disturbance, mood disturbance, and anxiety; Z79.4 Long term (current) use of insulin; I25.10 Atherosclerotic heart disease of native coronary artery without angina pectoris; I50.9 Heart failure, unspecified; E03.9 Hypothyroidism, unspecified; I11.0 Hypertensive heart disease with heart failure; Z79.82 Long term (current) use of aspirin; E78.00 Pure hypercholesterolemia, unspecified; Z79.899 Other long term (current) drug therapy; K59.00 Constipation, unspecified; Z79.84 Long term (current) use of oral hypoglycemic drugs; Z79.890 Hormone replacement therapy
CPT/HCPCS: 36430; 80048; 80053; 82533; 82947; 82962; 84439; 84443; 85014; 85018; 85025; 85027; 86850; 86900; 86901; 86920; 87070; 97163; 97166; 99291; P9016

== ENCOUNTER 2024-09-07 22:23 | Inpatient (IN) | payer MEDICARE, SELFPAY ==
[2024-09-07] VITALS (8 sets, daily range): BP systolic 86–130; BP diastolic 44–74; BMI 33.6
[2024-09-07 18:23] LABS: % Basophils 0.4 % (0-2); % Eosinophils 1.7 % (0-6); % Immature Granulocytes 0.5 % (0-0.5); % Lymphocytes 17.7 % (20.5-51.1); % Monocytes 9.4 % (1.7-9.3); % Neutrophils 70.3 % (42.2-75.2); Absolute Eosinophils 0.2 10^3/uL (0-0.7); Absolute Immature Granulocytes 0.1 10^3/uL (0-0.05); Absolute Monocytes 1.1 10^3/uL (0.1-0.6); Hematocrit 24.4 % (37.0-47.0); Hemoglobin 8.1 g/dL (12.0-16.0); Mean Corp Hgb Conc. 33.2 g/dL (33.0-37.0); Mean Corpuscular Hgb 31.8 pg (27.0-31.0); Mean Corpuscular Volume 95.7 fL (81.0-99.0); Nucleated Red Blood Cells % 0 %; Platelet Count 219 10^3/uL (130-400); Red Blood Cell Count 2.55 10^6/uL (4.20-5.40); Red Cell Dist. Width 17.2 % (11.5-14.5); White Blood Cell Count 11.4 10^3/uL (4.8-10.8)
[2024-09-07 18:35] LABS: Lactic Acid 1.5 mmol/L (0.7-2.0)
[2024-09-07 18:37] LABS: ALT (SGPT) 12 U/L (0-35); AST (SGOT) 20 U/L (14-36); Albumin 3.2 g/dl (3.5-5.0); Alkaline Phosphatase 77 U/L (38-126); Blood Urea Nitrogen 53 mg/dl (7-17); Calcium 8.6 mg/dl (8.4-10.2); Carbon Dioxide 30 mmol/L (22-30); Chloride 91 mmol/L (98-107); Estimated Creatinine Clearance 32 ml/min; Glucose 163 mg/dl (70-99); Potassium 4.6 mmol/L (3.5-5.1); Sodium 129 mmol/L (135-145); Total Bilirubin 0.9 mg/dl (0.2-1.3); Total Protein 6.1 g/dl (6.3-8.2); eGFR 34.36
[2024-09-07 18:54] LABS: COVID-19 Antigen Negative (Negative)
--- NOTE | 2024-09-07 19:26 | EDRN ---
Pt sleeping when this RN entered room. Pt woke to voice. Pt said she knows where she is but would not answer where she is nor would pt answer what year is it. Empty NS 500ml bag removed from pt's L ACF #18g. Pt denies pain. Noted pt's pulse ox
89-91% room air. Pt denies trouble breathing 'My breathing is fine.' Placed pt on 2 lpm O2 and pulse ox up to mid-high 90's. Pt says she is comfortable and warm enough. Pt would not answer why she is here. Pt requested telephone which was
provided. Pt denied cp, sob, abd pain, n/v, urinary symptoms, dizziness, weakness, cough. Pt informed she is waiting to go for cxr.
[2024-09-07 20:18] LABS: Urine Albumin 2+ (Neg - Trace); Urine Bilirubin Negative (Negative); Urine Character Cloudy (Clear); Urine Color Yellow; Urine Glucose 2+ (Negative); Urine Ketone Negative (Negative); Urine Leukocyte 3+ (Negative); Urine Nitrite Negative (Negative); Urine Occult Blood 3+ (Negative); Urine Urobilinogen Negative (Neg - 1+)
[2024-09-07 20:26] LABS: Urine Squamous Cell None seen /LPF (Few)
[2024-09-07 20:27] LABS: Urine White Cell >100 /HPF (0-5)
--- NOTE | 2024-09-07 21:24 | ED.GENMED ---
History of Present Illness
General
Chief Complaint: Weakness
Source: patient
Exam Limitations: none
Time Seen by Provider: 09/07/24 18:28
Nursing documentation reviewed up to this point in time: agreed with
History of Present Illness
History of Present Illness:
Patient presents [facility] from [facility] secondary to mental status change along with hypotension and fever. Patient was given Tylenol prior to transfer. Upon arrival, patient is febrile, but otherwise has no complaints. Denies coughing. Denies
chest pain. Denies shortness of breath. Denies abdominal pain. Denies vomiting or diarrhea. Denies back pain. Denies difficulty with urination.
Review of Systems
Review of Systems
Allergies reviewed?: Yes
All Other Systems: ROS reviewed and negative except as documented in HPI and ROS
Constitutional: Reports fever
EENT: Reports no symptoms
Respiratory: Denies cough
Cardiac: Reports no symptoms
ABD/GI: Reports no symptoms; Denies vomiting or diarrhea
: Reports no symptoms
Musculoskeletal: Reports no symptoms
Skin: Reports no symptoms
Neurological: Reports no symptoms
Phy Exam
Physical Exam
Physical Exam:
Physical Exam
General: no apparent distress, not acutely ill. afebrile.
Head: nc/at. eomi
Neck: supple. normal range of motion.
Heart: s1/s2 regular rate and rhythm, no murmur. equal radial pulses.
Lungs: no acute respiratory distress. clear bilaterally
Abdomen: normal bowel sounds. not tender.
Neuro: alert and oriented. no focal neurological deficits
Skin: no rash
Psychiatric: well kept. interactive and cooperative
Extremities: LE b/l, nonpitting edema. no calf tenderness.
Sepsis
Sepsis Screening
Sepsis Assessment: Sepsis
Sepsis Screen
Sepsis Screen: Sepsis
Date: 09/08/24
Time: 12:50
Course
Orders/Labs/Results
Orders:
Orders
09/07/24 18:09
Electrocardiogram (*1) Urgent
Reason for Study: Other
Other Reason for Exam: Possible Sepsis
IV Insert/Care/Rem.- Treatment PRN
09/07/24 18:10
EKG- Treatment ONCE
CR Chest - 2 Views Urgent
Comment:
Reason For Exam: suspected infection
09/07/24 18:13
COVID-19 Antigen Urgent
Source: Nasal Swab
Complete Blood Count/With Diff Urgent
Comprehensive Metabolic Panel Urgent
Lactic Acid Q4H
Comment: ON ICE, CANCEL 2ND ORDER IF FIRST LACTIC ACID LEVEL <2
Influenza A+B Rapid Molecular Urgent
SHELLY Source: Nasal Swab
Specimen Description:
09/07/24 19:49
Straight cath- Treatment ONCE
09/07/24 20:09
Urinalysis Reflex To Culture Urgent
Date Specimen was Collected: 09/07/24
Time Specimen was Collected: 20:08
Urine Microscopic Reflex Cult Urgent
Urine Culture Urgent
SHELLY Source: U
Specimen Description:
Date Specimen was Collected: 09/07/24
Time Specimen was Collected: 20:08
09/07/24 21:24
CefTRIAXone [Rocephin] 1,000 mg IV NOW STA
09/07/24 21:35
Sterile Water [Sterile Water For Injection] 10 ml .ROUTE .STK-MED ONE
09/07/24 22:01
Admit/Transfer Patient As Directed
Co-Sign Provider:
Level of Care: Inpatient admission
Assign to:: Telemetry
Physician / Group: hospitalist
Diagnosis: pyelonephritis
Reason for Telemetry: Medication for Arrhythmia
Date to Stop Telemetry: 09/09/24
Time to Stop Telemetry: 11:00
Reason for Hospitalization: pyelonephritis
Expected length of stay greater than two midnights?: Yes
ELOS- Estimated Length of Stay in days: 2
I certify the patient meets the requirements for IP care: Yes
PRN Pain Medication Management As Directed
May give lesser potent ordered pain med per pt: Yes
preference::
Protocol:: Medication orders for pain may be administered in a
manner that supports deferring to patient preference
when the pt is:
- Requesting an ordered lesser potent pain medication.
Least to most potent pain medications are defined
as: acetaminophen < NSAID < tramadol < opioids
(morphine, oxycodone, hydromorphone).
- Requesting a lesser dose of the same medication IF
ORDERED.
- Requesting a less intrusive route of administration
if both routes are prescribed by the provider (PO <
IV).
09/07/24 22:04
Code Status As Directed
Resuscitation Status: Full Code
09/07/24 23:00
Flush (0.9% Sodium Chloride) [Flush (Nss)] See Dose Instructions IV PER PROTOCOL
09/08/24 00:09
Acetaminophen [Tylenol] 650 mg PO Q6HPRN PRN
Albuterol Sulfate [Ventolin Nebules] 2.5 mg INH R Q6HPRN PRN
Bisacodyl [Dulcolax] 10 mg RECTAL DAILYPRN PRN
Magnesium Hydroxide [Milk of Magnesia] 30 ml PO [id number] PRN
09/08/24 00:09
Activity As Directed
Activity Level: With Assistance
Bedside Glucose Monitoring As Directed
Frequency: AC&HS
Intake/ Output As Directed
Frequency: Per unit guidelines
Vital Signs As Directed
Frequency: Per unit guidelines
Weight As Directed
Frequency: Daily
O2 Therapy [RESP] Routine
Nasal Cannula Liter Flow: 2 LPM
Titrate/Wean O2 to maintain O2 sat greater than (%): 93
Pulse Ox/cont/shift [RESP] Routine
Quantity: 1
Special Instructions: continuous pulse ox
09/08/24 01:00
Azithromycin 500 mg/250 ml [Zithromax Infusion] 500 mg in 250 ml IV HS
09/08/24 06:00
Levothyroxine [Synthroid] 75 mcg PO DAILY @ 0600
09/08/24 06:02
Type+Screen IN AM
Basic Metabolic Panel IN AM
Complete Blood Count/No Diff IN AM
Procalcitonin IN AM
PCT Algorithmm Indication: Respiratory
09/08/24 07:30
Insulin Aspart Corrective Low [Novolog Flexpen-Low Resistance] See Protocol SC AC
09/08/24 08:00
Aspirin Low Dose EC [Aspir Low (Enteric Coated)] 81 mg PO DAILY
Bumetanide [Bumex] 2 mg PO DAILY
Carvedilol [Coreg] 6.25 mg PO BID
Dapagliflozin [Farxiga] 10 mg PO DAILY
Enoxaparin Sodium [Lovenox] 40 mg SC DAILY
Ferrous Sulfate [Feosol] 325 mg PO BID
Ipratropium/Albuterol Sulfate [Duoneb] 3 ml INH R QID
Pantoprazole [Protonix] 40 mg PO DAILY
Polyethylene Glycol Powder [Miralax] 17 grams PO DAILY
Pramipexole [Mirapex] 0.125 mg PO BID
Sennosides [Senokot] 8.6 mg PO DAILY
09/08/24 12:00
Docusate Sodium [Colace] 100 mg PO NOON
09/08/24 Dinner
1800 calorie (15 carb) Diabetic
At Your Request: Limited, Tuber Machine Cutter Required
Does patient need a safe tray?: No
Fluid Restriction: 1800 mL/day (60 oz)
09/08/24 22:00
CefTRIAXone [Rocephin] 1,000 mg IV HS
Gabapentin [Neurontin] 300 mg PO HS
Rosuvastatin Calcium [Crestor] 10 mg PO HS
09/09/24 11:00
DC Protocol for Telemetry ONCE
Abnormal Lab Results
09/07/24 09/07/24
18:13 20:09
WBC 11.4 H 10^3/uL
(4.8-10.8)
RBC 2.55 L 10^6/uL
(4.20-5.40)
Hgb 8.1 L g/dL
(12.0-16.0)
Hct 24.4 L %
(37.0-47.0)
MCH 31.8 H pg
(27.0-31.0)
RDW 17.2 H %
(11.5-14.5)
Abs Immat Gran (auto) 0.1 H 10^3/uL
(0-0.05)
Absolute Neuts (auto) 8.0 H 10^3/uL
(1.4-6.5)
Absolute Monos (auto) 1.1 H 10^3/uL
(0.1-0.6)
Lymphocytes % 17.7 L %
(20.5-51.1)
Monocytes % 9.4 H %
(1.7-9.3)
Sodium 129 L mmol/L
(135-145)
Chloride 91 L mmol/L
(98-107)
BUN 53 H mg/dl
(7-17)
Creatinine 1.5 H mg/dL
(0.6-1.0)
Glucose 163 H mg/dl
(70-99)
Total Protein 6.1 L g/dl
(6.3-8.2)
Albumin 3.2 L g/dl
(3.5-5.0)
Ur Occult Blood Reflex 3+ A
(Negative)
Leukocyte Esterase Rfl 3+ A
(Negative)
Urine WBC (Reflex) >100 A /HPF
(0-5)
Urine Glucose 2+ A
(Negative)
Urine Albumin (Reflex) 2+ A
(Neg - Trace)
09/07/24 18:13
09/07/24 18:13
Vital Signs
Initial and Last Documented VS:
Initial Vital Signs
BP
111/44
09/07/24 18:03
Last Documented Vital Signs
Temp Pulse Resp BP Pulse Ox
98.3 F 87 20 141/65 98
09/08/24 11:30 09/08/24 11:30 09/08/24 11:30 09/08/24 11:30 09/08/24 11:30
MDM/Problems Addressed
MDM/Problems Addressed:
History, exam, blood work, and urinalysis concerning for sepsis, likely secondary to urinary tract infection. Initial hypotension resolved spontaneously. Patient although mildly somnolent, easily arousable to voice. Patient's clinical
presentation is concerning for potential development of bacteremia. As such, patient will be admitted for IV antibiotics. Rocephin given. Urine culture pending.
*Critical Care Note
Total Time (30-74mins, 75-104mins- exclusive of procedures): Not Applicable
ED Attending Note
-
Portions of this chart may have been created with voice recognition software.� Occasional wrong word or��sound alike� substitutions may have occurred due to the inherent limitations of voice recognition software.
Discharge Plan
Departure
Patient Disposition: Admit
Date of Disposition: 09/07/24
Time of Disposition: 21:29
Presentation/result/management discussed w/ accepting MD/DO: Hospitalist
Discharge Problem:
Sepsis, Acute UTI
Interventions
Interventions:
*Risk Screen - Suicide Last Done: 09/07/24 18:04
*General Assessment Last Done: 09/07/24 18:04
*Neglect/Abuse Screening Last Done: 09/07/24 18:04
ED- Fall Risk Assessment Last Done: 09/07/24 18:04
*ED COVID-19 Vaccine History Last Done: 09/07/24 18:04
*Nursing Disposition Last Done: 09/07/24 23:43
ED- Cardiac Assessment Last Done: 09/07/24 19:20
ED- Neurological Assessment Last Done: 09/07/24 19:20
ED- Pulmonary Assessment Last Done: 09/07/24 19:20
Discharge Date and Time
Discharge Date/Time: 09/07/24 23:43
[2024-09-07] MEDS: ROCEPHIN 1000 MG IV (21:39)
--- NOTE | 2024-09-07 21:46 | HPS.HSE ---
Family Physician
-
Family Physician: NOT KNOW UNKNOWN - PT DOES
Chief Complaint
-
Fever and weakness
History of Present Illness
This is a 83-year-old female with past medical history significant for congestive heart failure, proximal atrial fibrillation on anticoagulation, insulin-dependent diabetes, asthma/COPD, CAD, GERD presenting to the emergency department after being
found at the [facility] with fevers and shakes
Patient also has a history of dementia. She is unable to provide much history. She only states that she was not coughing. She was found by retirement staff shaking in bed. Admitted temperature of 101.3. She also had oxygen saturation of 84%
on room air at that time. EMS was called. She had a COVID test which was negative. EMS placed her on 2 L and her oxygen saturation improved. Respiratory rate also improved from high 20s to 18. Patient was then transferred to the emergency
department. Patient was unable to tell me she was having any urinary symptoms. She denied any abdominal pain. She denied any nausea or vomiting. She denies having any headache. She reports just feeling cold. No known sick contacts but she does
lives at a retirement. On arrival in the emergency department she had a influenza test which was negative.
Blood pressure was initially reported as low as 70 systolic, on my evaluation her blood pressure was 111/63 with a pulse of 81. She was satting 94% on 1 L. ECG shows atrial fibrillation with a rate of 90/atrial flutter. Troponin was negative.
Chest x-ray shows possible low lung volumes, linear opacity in the mid lung on the left side. Discal possibly an artifact. UA was positive for leukocyte esterase white blood cells with significant pyuria, bacteria could not be determined. There
was 3+ blood. CBC shows a white count of 11.4 hemoglobin of 8.1 which is close to her baseline with a normal platelet count. Electrolytes notable for sodium of 129 which is close to her baseline of the low 130s. Potassium chloride and bicarb were
within the normal range. Creatinine was 1.5 which was close to her baseline. Her lactic acid was negative.
Medical History
Past Medical History
Past Medical History: Reports Other
Additional Past Medical History:
Proximal atrial fibrillation, CAD, CHF, HTN, Hypothyroidism and IDDM
Past Surgical History: Reports Other
Social History
Unable to obtain full social history at this time due to: Dementia
Tobacco: Non-smoker
Alcohol: None
Drug: None
Living: [facility]
Employment: Retired
Family History
Family History: Not pertinent
Allergies / Home Medications
Allergies reflects when Allergies were last updated in [facility].
Home Medications with original date entered in [facility]
Allergy/Medication List:
Allergies
Allergy/AdvReac Type Severity Reaction Status Date / Time
nitrofurantoin Allergy Unknown Unknown Verified 09/07/24 18:04
Home Medications
acetaminophen 325 mg tablet 650 mg PO Q6HPRN PRN mild pain 07/15/24
bisacodyl 10 mg rectal suppository 10 mg HI DAILYPRN PRN if mom ineffective after 24 hours 07/15/24
bumetanide 2 mg tablet 2 mg PO DAILY Fluid Retention/Swelling 07/15/24
carvedilol 6.25 mg tablet (Coreg) 6.25 mg PO BID Heart Disease/Condition 07/15/24
cholecalciferol (vitamin D3) 50 mcg (2,000 unit) tablet (Vitamin D3) 50 mcg PO DAILY Supplement 07/15/24
dapagliflozin propanediol 10 mg tablet 10 mg PO DAILY Diabetes 07/15/24
docusate sodium 100 mg capsule 100 mg PO NOON Constipation 07/15/24
gabapentin 300 mg capsule 300 mg PO HS 07/15/24
hydralazine 25 mg tablet 25 mg PO TID Blood Pressure 07/15/24
insulin glargine 100 unit/mL subcutaneous solution 6 unit SC HS Diabetes 07/15/24
insulin lispro 100 unit/mL subcutaneous pen (Humalog KwikPen (U-100) Insulin) 1 sliding scale dose SC ACHS Diabetes 07/15/24
isosorbide mononitrate 30 mg tablet,extended release 24 hr 30 mg PO DAILY Heart Disease/Condition 07/15/24
levothyroxine 75 mcg tablet 75 mcg PO DAILY Thyroid 07/15/24
magnesium hydroxide 400 mg/5 mL oral suspension (Milk of Magnesia) 30 ml PO [id number] PRN if no bm 3 days 07/15/24
omeprazole 20 mg capsule,delayed release 20 mg PO DAILY Gastrointestinal Issue 07/15/24
pramipexole 0.125 mg tablet 0.125 mg PO BID Neurological Condition 07/15/24
rosuvastatin 10 mg tablet 10 mg PO HS High Cholesterol 07/15/24
spironolactone 25 mg tablet 12.5 mg PO NOON Fluid Retention/Swelling 07/15/24
albuterol sulfate 2.5 mg/0.5 mL solution for nebulization 2.5 mg inhalation R Q6HPRN PRN wheezing/cough 09/07/24
aspirin 81 mg capsule 81 mg PO DAILY 09/07/24
enoxaparin 40 mg/0.4 mL subcutaneous syringe 40 mg SC DAILY 09/07/24
ferrous sulfate 325 mg (65 mg iron) tablet 325 mg PO BID 09/07/24
polyethylene glycol 3350 17 gram oral powder packet (Miralax) 17 g PO DAILY 09/07/24
sennosides 8.6 mg tablet (senna) 8.6 mg PO DAILY 09/07/24
Review of Systems
-
Unable to obtain full review of systems at this time due to: Acuity
Physical Exam
Vital Signs
Vital Signs
Temp Pulse Resp BP Pulse Ox
98.1 F 81 19 111/63 94
09/07/24 19:20 09/07/24 21:07 09/07/24 21:07 09/07/24 21:07 09/07/24 21:07
Physical Exam
General: Appears Chronically Ill and Obese
HEENT: NormoCephalic, Anicteric, PERRLA, No Ptosis and Oxygen
Respiratory: Crackles
Cardiac: S1/S2 and Regular Rhythm
Breast: Deferred by me
GI: Non Tender, Non Distended and Normal Bowel Sounds
Rectal: Deferred by Provider
Genito-urinary: Deferred by me
Musculoskeletal: No Clubbing, No Cyanosis and No Edema
Skin: Warm
Neuro: Alert, Oriented (oriented to person only) and Nonfocal/grossly intact
Hematologic/Lymphatic: No Lymphadenopathy
Psych: Calm
Laboratory Results
-
09/07/24 18:13
09/07/24 18:13
Laboratory Results
Lactic Acid Cancelled 09/07/24 22:15
Total Bilirubin 0.9 mg/dl (0.2-1.3) 09/07/24 18:13
AST 20 U/L (14-36) 09/07/24 18:13
ALT 12 U/L (0-35) 09/07/24 18:13
Alkaline Phosphatase 77 U/L (38-126) 09/07/24 18:13
Data Reviewed
-
Diagnostic Radiology: Image Personally Visualized and interpreted and Report Reviewed by me
Medical Tests (Nuc Med, Echo, EKG etc): Image Personally Visualized and interpreted
Lab Data: Labs Reviewed by me
Old Records: Reviewed
Impression/Plan
-
IMPRESSION:
83 y.o female with multiple commorbiditis presenting to ED with fever, confusion, chills. Has positive u/a. Possible mid left lung opacity. She is not coughing but is requiring some oxygen. Cardiomegaly on xray without vascular congestion or
congestive heart failure. Initial blood pressure was soft but seemed to respond without any IV fluids. Lactate is negative. Renal function appears to be at baseline.
PLAN:
1. Fever - Likely urinary source but cannot rule out pulmonary. BP stabilized without IV fluids so unlikely shock.
- admit to telemetry due to multiple commorbidities including afib
- blood cultures sent, urine cultures sent
- negative flu/covid
- no prior cultures in system here and from [facility], will continue IV ceftriaxone with azithromycin
- check procalcitonin
- respiratory treatments for now
- will hold antihypertensives for now
2. CHF - no signs of acute exacerbation
- hold coreg for now, continue with hold parameters in am
- bumex 2mg daily continue with hold parameters in am
- hold hydralazine, spironalctone and imdur, till HD stabilized
3. AFIB
- of apixaban from recent gi bleed
- continue coreg
- continue low dose aspirin
4. DM II
- continue farxiga
- lantus 6 hs
- sliing scale insulin
5. Anemia - chronic Iron deficiency and blood loss anemia
- continue oral iron supplementation
DVT PPX - lovenox sq
Code status - full code
[2024-09-08 00:07] VITALS: BP 130/68; BMI 31.5
--- NOTE | 2024-09-08 00:10 | PTCARENOTE ---
Pt from ED oriented to self, will state name. Refusing to answer admission questions. Stating no pain at this time. VSS temp 100.2. Bed alarm in place. Care is ongoing.
[2024-09-08 00:16] LABS: Glucose - Point of Care 171 mg/dl (70-99)
[2024-09-08] MEDS: ZITHROMAX INFUSION 250 IV ×2 (00:33→22:37)
--- NOTE | 2024-09-08 01:39 | PTCARENOTE ---
Pt with small black tarry stool, hemetest positive. House CONTROL CLERK aware.
[2024-09-08 03:21] VITALS: BP 142/68
[2024-09-08] MEDS: OFIRMEV 100 IV ×2 (05:30→14:56)
--- NOTE | 2024-09-08 05:34 | PTCARENOTE ---
Pt very drowsy, oral temp 100.2 and 100.1. Unable to recheck rectal temp due to + hemetest this shift. Pt unable to take PO- house SECTION HAND ordered IV offirmev 1000 mg.
[2024-09-08 06:11] LABS: Hematocrit 24.1 % (37.0-47.0); Hemoglobin 8.1 g/dL (12.0-16.0); Mean Corp Hgb Conc. 33.6 g/dL (33.0-37.0); Mean Corpuscular Hgb 31.5 pg (27.0-31.0); Mean Corpuscular Volume 93.8 fL (81.0-99.0); Platelet Count 205 10^3/uL (130-400); Red Blood Cell Count 2.57 10^6/uL (4.20-5.40); White Blood Cell Count 10.9 10^3/uL (4.8-10.8)
[2024-09-08 06:40] LABS: Blood Urea Nitrogen 55 mg/dl (7-17); Calcium 8.5 mg/dl (8.4-10.2); Carbon Dioxide 28 mmol/L (22-30); Chloride 92 mmol/L (98-107); Estimated Creatinine Clearance 33 ml/min; Glucose 169 mg/dl (70-99); Potassium 4.4 mmol/L (3.5-5.1); Sodium 130 mmol/L (135-145); eGFR 37.33
[2024-09-08 06:47] LABS: Procalcitonin 0.52 ng/ml (0.0-0.25)
[2024-09-08 07:00] VITALS: BP 96/49
[2024-09-08] MEDS: BUMEX PO (08:09)
[2024-09-08] MEDS: DUONEB 3 ML INH ×4 (08:26→19:10)
[2024-09-08 08:28] LABS: Glucose - Point of Care 193 mg/dl (70-99)
[2024-09-08] MEDS: PROTONIX 40 MG PO (08:55)
[2024-09-08] MEDS: FEOSOL 325 MG PO ×2 (08:56→19:31)
[2024-09-08] MEDS: LOVENOX 40 MG SC (08:56)
[2024-09-08] MEDS: COREG 6.25 MG PO ×2 (08:56→19:31)
[2024-09-08] MEDS: ASPIR LOW (ENTERIC COATED) 81 MG PO (08:57)
[2024-09-08] MEDS: MIRAPEX 0.125 MG PO ×2 (08:57→19:31)
[2024-09-08] MEDS: MIRALAX 17 GRAMS PO (08:57)
[2024-09-08] MEDS: SENOKOT 8.6 MG PO (08:57)
[2024-09-08] MEDS: FARXIGA PO (08:59)
[2024-09-08] MEDS: SYNTHROID 75 MCG PO (09:19)
[2024-09-08] MEDS: NOVOLOG FLEXPEN-LOW RESISTANCE 1 UNITS SC ×3 (09:19→16:53)
--- NOTE | 2024-09-08 10:41 | CM ---
Patient seen at bedside. Patient confused. Patient from [facility] and no transfer form scanned into chart. CM called to Liaison and left VM requesting call back about status and prior level of functioning. CM will continue to follow for discharge
planning needs.
Plan; return to SNF; pending update regarding ltc status.
--- NOTE | 2024-09-08 11:15 | W.PN.HOSP.TC ---
Today's Communication/Plan
-
Await for culture data
Continue with antibiotic
Speech evaluation
Trend creatinine
Restart carvedilol
Holding diuretics for 24 hours
Assessment / Plan
Assessment / Plan
IMPRESSION:
83 y.o female with multiple comorbidities presenting to ED with fever, confusion, chills. Has positive u/a. Possible mid left lung opacity. She is not coughing but is requiring some oxygen. Cardiomegaly on xray without vascular congestion or
congestive heart failure. Initial blood pressure was soft but seemed to respond without any IV fluids. Lactate is negative. Renal function appears to be at baseline.
PLAN:
Fever - Likely urinary source but cannot rule out pulmonary.
- blood cultures sent, urine cultures sent
- negative flu/covid
- no prior cultures in system here and from [facility], will continue IV ceftriaxone with azithromycin
- check procalcitonin elevated
- respiratory treatments for now
CHF - no signs of acute exacerbation
-Restart carvedilol and isosorbide mononitrate
-Hold Bumex and hydralazine and Aldactone
AFIB unclear chronicity
- of apixaban from recent gi bleed
- continue coreg
- continue low dose aspirin
DM II
-Hold farxiga
- lantus 6 hs
- sliing scale insulin
Anemia - chronic Iron deficiency and blood loss anemia
- continue oral iron supplementation
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
-Hold diuretics for now
-Creatinine slowly improving. If no improvement check urine studies
DVT PPX - lovenox sq
Code status - full code
Anticipated Discharge: > 48 hours
Subjective/Interval History
-
Date of Service: September 08, 2024
Currently eating ice chips
More awake and answering questions
Denies abdominal pain or nausea or vomiting
Currently on oxygenation
Overnight per RN patient was confused and not as awake and talkative
Objective Data
-
Labs:
Laboratory Results
09/08/24
06:02
WBC 10.9 H
Hgb 8.1 L
Hct 24.1 L
Plt Count 205
Sodium 130 L
Potassium 4.4
Chloride 92 L
Carbon Dioxide 28
BUN 55 H
Creatinine 1.4 H
Glucose 169 H
Calcium 8.5
Vital Signs:
Vital Signs
Temp Pulse Resp BP Pulse Ox
98.1 F 88 16 102/55 90
09/08/24 07:00 09/08/24 08:56 09/08/24 08:30 09/08/24 08:56 09/08/24 08:30
Physical Exam
-
General: Well Developed and No Apparent Distress
HEENT: Normocephalic, Atraumatic and Moist Mucous Membranes
Respiratory: Clear to Auscultation
Cardiac: Regular Rhythm and S1/S2; Negative Murmur, Rub or Gallop
GI: Soft, Nontender, Nondistended and Normal Bowel Sounds; Negative Organomegaly
Rectal: Deferred by Provider
Musculoskeletal: No Clubbing, No Cyanosis and No Edema
Skin: Negative Rash
Neuro: Nonfocal/Grossly Intact
Psych: Apparent Dementia
Data Reviewed
-
Total Time Spent with Patient (in minutes): 55
[2024-09-08 11:30] VITALS: BP 141/65
[2024-09-08] MEDS: COLACE 100 MG PO (11:45)
[2024-09-08] MEDS: IMDUR (EXTENDED RELEASE) 30 MG PO (11:45)
--- NOTE | 2024-09-08 12:15 | PTCARENOTE ---
12:01 noted approx 20sec episode of VT on tele monitor, then converts back to SR. Pt resting in bed, asymptomatic. Dr Guillen notified. Mg level ordered. After Mg resulted Mg rider ordered.
[2024-09-08 12:55] LABS: Magnesium 1.8 mg/dl (1.6-2.3)
--- NOTE | 2024-09-08 13:13 | PTOTSP ---
Speech Pathology
Clinical Swallow Evaluation
83F admitted from [facility] for fever and weakness. Dementia hx. On dysphagia 3/advanced diet at [facility].
Presents with s/s of an oral dysphagia, likely acute on chronic, characterized by poor oral acceptance and slow bolus formation of solids this date.
Aspiration risk is increased 2/2 current lethargy with AMS, dementia, baseline dysphagia diet, and multiple comorbidities (i.e. CHF, COPD/asthma, GERD).
Recommend:
1. Minced and Moist (IDDSI 5), thin liquids (IDDSI 0)
2. Meds whole vs. crushed in puree
3. Strategies: ONLY FEED WHEN AWAKE AND ALERT, feeding assistance (partial vs full depending on mentation), upright with PO
4. Aspiration and reflux precautions
5. CHAMFERING MACHINE OPERATOR service to f/u re: to assess diet tolerance and advance diet as able pending mentation
[2024-09-08 13:29] LABS: Glucose - Point of Care 172 mg/dl (70-99)
[2024-09-08] MEDS: MAGNESIUM SULFATE 50 IV (13:30)
[2024-09-08 14:18] VITALS: BP 123/60
--- NOTE | 2024-09-08 15:03 | PTCARENOTE ---
Pt noted to be very drowsy this afternoon again. Wakes up to tactile stimulus. BP 123/60, pulse 87, POX 98% on 2L NC. Temp 100.8. Dr Guillen notified. IV Ofirmev ordered. Pt not alert enough at this time to take PO and rectal route not available d/t
recent GIB.
[2024-09-08 16:53] LABS: Glucose - Point of Care 168 mg/dl (70-99)
[2024-09-08] MEDS: ROCEPHIN 1000 MG IV (21:11)
[2024-09-08] MEDS: STERILE WATER FOR INJECTION 10 ML IV (21:11)
[2024-09-08] MEDS: NEURONTIN 300 MG PO (21:21)
[2024-09-08] MEDS: CRESTOR 10 MG PO (21:21)
[2024-09-08] MEDS: LANTUS 0.06 UNITS SC (21:24)
[2024-09-08 21:25] LABS: Glucose - Point of Care 202 mg/dl (70-99)
[2024-09-08 23:54] VITALS: BP 94/56
[2024-09-09] VITALS (8 sets, daily range): BP systolic 95–135; BP diastolic 47–67; PULSE 62; O2SAT 95
[2024-09-09] MEDS: SYNTHROID 75 MCG PO (04:43)
[2024-09-09] MEDS: TYLENOL 650 MG PO (04:46)
[2024-09-09 05:40] LABS: % Basophils 0.5 % (0-2); % Immature Granulocytes 0.6 % (0-0.5); % Lymphocytes 24.7 % (20.5-51.1); % Monocytes 9.7 % (1.7-9.3); % Neutrophils 62.5 % (42.2-75.2); Absolute Eosinophils 0.2 10^3/uL (0-0.7); Absolute Immature Granulocytes 0.1 10^3/uL (0-0.05); Absolute Lymphocytes 2.1 10^3/uL (1.2-3.4); Absolute Monocytes 0.8 10^3/uL (0.1-0.6); Absolute Neutrophils 5.2 10^3/uL (1.4-6.5); Hematocrit 25.3 % (37.0-47.0); Hemoglobin 8.3 g/dL (12.0-16.0); Mean Corp Hgb Conc. 32.8 g/dL (33.0-37.0); Mean Corpuscular Hgb 31.3 pg (27.0-31.0); Mean Corpuscular Volume 95.5 fL (81.0-99.0); Mean Platelet Volume 8.9 fL (7.4-10.4); Nucleated Red Blood Cells % 0 %; Platelet Count 201 10^3/uL (130-400); Red Blood Cell Count 2.65 10^6/uL (4.20-5.40); Red Cell Dist. Width 16.6 % (11.5-14.5); White Blood Cell Count 8.3 10^3/uL (4.8-10.8)
[2024-09-09 06:10] LABS: Blood Urea Nitrogen 60 mg/dl (7-17); Calcium 8.7 mg/dl (8.4-10.2); Carbon Dioxide 27 mmol/L (22-30); Chloride 92 mmol/L (98-107); Estimated Creatinine Clearance 31 ml/min; Glucose 137 mg/dl (70-99); Potassium 4.3 mmol/L (3.5-5.1); Sodium 130 mmol/L (135-145); eGFR 34.36
[2024-09-09] MEDS: DUONEB 3 ML INH ×4 (07:05→19:25)
[2024-09-09 07:46] LABS: Glucose - Point of Care 226 mg/dl (70-99)
[2024-09-09] MEDS: NOVOLOG FLEXPEN-LOW RESISTANCE 2 UNITS SC (08:35)
[2024-09-09] MEDS: MIRAPEX 0.125 MG PO ×2 (08:36→21:54)
[2024-09-09] MEDS: FEOSOL 325 MG PO ×2 (08:36→21:54)
[2024-09-09] MEDS: PROTONIX 40 MG PO (08:36)
[2024-09-09] MEDS: IMDUR (EXTENDED RELEASE) 30 MG PO (08:36)
[2024-09-09] MEDS: MIRALAX 17 GRAMS PO (08:36)
[2024-09-09] MEDS: SENOKOT 8.6 MG PO (08:36)
[2024-09-09] MEDS: LOVENOX 40 MG SC (08:36)
[2024-09-09] MEDS: ASPIR LOW (ENTERIC COATED) 81 MG PO (08:36)
[2024-09-09] MEDS: COREG 6.25 MG PO ×2 (08:37→21:55)
--- NOTE | 2024-09-09 10:59 | W.PN.HOSP.TC ---
Addendum entered and electronically signed by Leora Carty MD 09/09/24 15:01:
Addendum
Reviewing admission criteria, pt had fever, hypotension, leukocytosis, change in MS, c/w sepsis POA/ septic shock, now improving.
d/w son.
Addendum entered and electronically signed by Leora Carty MD 09/09/24 14:43:
Addendum
Encephalopathy, toxic metabolic cephalopathy related to suspected UTI. Continue with antibiotic. Order blood culture
Hyponatremia
Chronic kidney disease stage IIIb, will decrease gabapentin to reduce lethargy with ongoing active infection
Original Note:
Today's Communication/Plan
-
c/w antibiotics
do blood culture
resume Bumex in am
Daily weight with hx of CHF
Assessment / Plan
Assessment / Plan
IMPRESSION:
83 y.o female with multiple comorbidities presenting to ED with fever, confusion, chills. Has positive u/a. Possible mid left lung opacity. She is not coughing but is requiring some oxygen. Cardiomegaly on xray without vascular congestion or
congestive heart failure. Initial blood pressure was soft but seemed to respond without any IV fluids. Lactate is negative. Renal function appears to be at baseline.
PLAN:
# UTI
Afebrile
WBC normal now
c/w IV Rocephin
Add blood culture
f/w urine culture
Chronic HF with preserved EF
- no signs of acute exacerbation
Will order daily weight
-Restarted carvedilol and isosorbide mononitrate
-Hold Bumex and hydralazine and Aldactone
# Paroxysmal atrial fibrillation
- off apixaban from recent gi bleed
- continue Coreg
- continue low dose aspirin
# Moisture associated skin injury on bilateral buttocks, blanchable, continue with barrier ointment.
DM II
-Hold Farxiga
- Lantus 6 hs
- sliding scale insulin
# Chronic blood loss anemia
Recent EGD with no findings
Further OP follow up with GI with stable HGB, family declined colonoscopy
- continue oral iron supplementation
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
-Hold diuretics for now
-Creatinine slowly improving. If no improvement check urine studies
DVT PPX - lovenox sq
Code status - full code
Total time spent to see the patient, examine the patient, review data and lab results, discuss treatment plan with patient, nursing staff around 55 minutes
Anticipated Discharge: 24 - 48 hours
Subjective/Interval History
-
Date of Service: September 09, 2024
She denies pain or discomfort but seems fatigued
Objective Data
-
Labs:
Laboratory Results
09/09/24
05:17
WBC 8.3
Hgb 8.3 L
Hct 25.3 L
Plt Count 201
Sodium 130 L
Potassium 4.3
Chloride 92 L
Carbon Dioxide 27
BUN 60 H
Creatinine 1.5 H
Glucose 137 H
Calcium 8.7
Vital Signs:
Vital Signs
Temp Pulse Resp BP Pulse Ox
98.3 F 85 20 114/52 97
09/09/24 07:30 09/09/24 07:30 09/09/24 07:30 09/09/24 07:30 09/09/24 07:30
I&O
09/08/24 09/09/24 09/10/24
06:59 06:59 06:59
Intake Total 1500 / 1500
Balance 1500 / 1500
[2024-09-09 11:45] LABS: Glucose - Point of Care 146 mg/dl (70-99)
[2024-09-09] MEDS: NOVOLOG FLEXPEN-LOW RESISTANCE SC (11:52)
[2024-09-09] MEDS: COLACE 100 MG PO (13:21)
--- NOTE | 2024-09-09 15:20 | WOUNDNOTE ---
WON RN note: Patient admitted with Sepsis, acute UTI.
See H&P for complete history. From [place].
PMH: Parkinson's, HTN, AV block-PM, chronic kidney disease and ambulatory dysfunction.
Wound Location and type/assessment: Patient admitted with: MASD of Buttocks. Patient turned self to sides, Has few blanchable red arnold on buttocks, not pressure injury. Would agree with MASD, barrier cream in use. Heels intact.
Appetite: Good.
Pressure redistribution devices in place: Accumax with turning schedule and pillow under calves.
Plan: No change recommended, continue barrier cream. Spoke to nurse Vianey who confirmed no open ulcers or PI on buttocks or sacrum, only MASD. Will update care plan and sign off.
Note to case management of equipment requested for discharge: None.
[2024-09-09 16:52] LABS: Glucose - Point of Care 261 mg/dl (70-99)
[2024-09-09] MEDS: NOVOLOG FLEXPEN-LOW RESISTANCE 3 UNITS SC (17:41)
[2024-09-09 21:14] LABS: Glucose - Point of Care 154 mg/dl (70-99)
[2024-09-09] MEDS: STERILE WATER FOR INJECTION 10 ML IV (21:52)
[2024-09-09] MEDS: NEURONTIN 200 MG PO (21:52)
[2024-09-09] MEDS: ROCEPHIN 1000 MG IV (21:52)
[2024-09-09] MEDS: FLUSH (NSS) 2 FLUSH IV ×2 (21:53→21:59)
[2024-09-09] MEDS: CRESTOR 10 MG PO (21:54)
[2024-09-09] MEDS: LANTUS 0.06 UNITS SC (21:59)
[2024-09-09] MEDS: ZITHROMAX INFUSION 250 IV (21:59)
[2024-09-10 03:27] VITALS: BP 120/60
[2024-09-10 04:17] VITALS: BMI 31.6
[2024-09-10] MEDS: DUONEB 3 ML INH (05:50)
[2024-09-10] MEDS: SYNTHROID 75 MCG PO (06:13)
[2024-09-10 07:00] VITALS: BP 109/93
[2024-09-10 07:05] LABS: Glucose - Point of Care 113 mg/dl (70-99)
[2024-09-10 07:35] LABS: Hematocrit 25.3 % (37.0-47.0); Hemoglobin 8.3 g/dL (12.0-16.0); Mean Corp Hgb Conc. 32.8 g/dL (33.0-37.0); Mean Corpuscular Hgb 31.3 pg (27.0-31.0); Mean Corpuscular Volume 95.5 fL (81.0-99.0); Mean Platelet Volume 9.3 fL (7.4-10.4); Platelet Count 221 10^3/uL (130-400); Red Blood Cell Count 2.65 10^6/uL (4.20-5.40); Red Cell Dist. Width 15.9 % (11.5-14.5); White Blood Cell Count 5.9 10^3/uL (4.8-10.8)
[2024-09-10 08:03] LABS: Blood Urea Nitrogen 49 mg/dl (7-17); Calcium 8.6 mg/dl (8.4-10.2); Carbon Dioxide 29 mmol/L (22-30); Chloride 94 mmol/L (98-107); Estimated Creatinine Clearance 39 ml/min; Glucose 115 mg/dl (70-99); Potassium 4.3 mmol/L (3.5-5.1); Sodium 133 mmol/L (135-145); eGFR 44.91
[2024-09-10] MEDS: NOVOLOG FLEXPEN-LOW RESISTANCE SC ×3 (08:41→16:56)
[2024-09-10] MEDS: LOVENOX 40 MG SC (09:43)
[2024-09-10] MEDS: PROTONIX 40 MG PO (09:45)
[2024-09-10] MEDS: ASPIR LOW (ENTERIC COATED) 81 MG PO (09:45)
[2024-09-10] MEDS: IMDUR (EXTENDED RELEASE) 30 MG PO (09:45)
[2024-09-10] MEDS: FEOSOL 325 MG PO ×2 (09:45→21:30)
[2024-09-10] MEDS: BUMEX 2 MG PO (09:45)
[2024-09-10] MEDS: COREG 6.25 MG PO ×2 (09:45→21:30)
[2024-09-10] MEDS: SENOKOT 8.6 MG PO (09:45)
[2024-09-10] MEDS: MIRAPEX 0.125 MG PO ×2 (09:46→21:29)
[2024-09-10] MEDS: MIRALAX 17 GRAMS PO (09:46)
[2024-09-10] MEDS: FARXIGA 10 MG PO (09:46)
--- NOTE | 2024-09-10 10:07 | W.PN.HOSP.TC ---
Today's Communication/Plan
-
dc in am
ok to resume all oral medications
Stop Zithromax
Assessment / Plan
Assessment / Plan
Physical Exam
General: No Apparent Distress
HEENT: Normocephalic, Atraumatic and Moist Mucous Membranes
Respiratory: Clear to Auscultation
Cardiac: Regular Rhythm and S1/S2; Negative Murmur, Rub or Gallop
GI: Soft, Nontender, Nondistended and Normal Bowel Sounds; Negative Organomegaly
Rectal: No bleeding
Musculoskeletal: No Edema
Skin: Negative Rash
Neuro: Nonfocal/Grossly Intact
Psych: Apparent Dementia
IMPRESSION:
83 y.o female with multiple comorbidities presenting to ED with fever, confusion, chills. Has positive u/a. Possible mid left lung opacity. She is not coughing but is requiring some oxygen. Cardiomegaly on xray without vascular congestion or
congestive heart failure. Initial blood pressure was soft but seemed to respond without any IV fluids. Lactate is negative. Renal function appears to be at baseline.
PLAN:
# UTI
Afebrile
WBC normal now
c/w IV Rocephin
f/w blood culture
f/w urine culture
Stop Zithromax for now
# Chronic HF with preserved EF
- no signs of acute exacerbation
Will order daily weight
-Restarted carvedilol and isosorbide mononitrate
-Hold Bumex and hydralazine and Aldactone
# Paroxysmal atrial fibrillation
- off apixaban from recent gi bleed
- continue Coreg
- continue low dose aspirin
# Moisture associated skin injury on bilateral buttocks, blanchable, continue with barrier ointment.
DM II
good blood glucose readings
-Resumed Farxiga
- Lantus 6 hs
- sliding scale insulin
# Chronic blood loss anemia
Recent EGD with no findings
Further OP follow up with GI with stable HGB, family declined colonoscopy
- continue oral iron supplementation
REI on CKD stage IIIb
- Resume diuretics for now
-Creatinine slowly improving. If no improvement check urine studies
DVT PPX - lovenox sq
Code status - full code
Total time spent to see the patient, examine the patient, review data and lab results, discuss treatment plan with patient, son, nursing staff around 55 minutes
Anticipated Discharge: Within 24 hours
Subjective/Interval History
-
Date of Service: September 10, 2024
She denies chest pain or sob
Objective Data
-
Labs:
Laboratory Results
09/10/24
06:34
WBC 5.9
Hgb 8.3 L
Hct 25.3 L
Plt Count 221
Sodium 133 L
Potassium 4.3
Chloride 94 L
Carbon Dioxide 29
BUN 49 H
Creatinine 1.2 H
Glucose 115 H
Calcium 8.6
Vital Signs:
Vital Signs
Temp Pulse Resp BP Pulse Ox
97.6 F 67 18 109/93 99
09/10/24 07:00 09/10/24 09:45 09/10/24 07:00 09/10/24 09:45 09/10/24 07:00
I&O
09/09/24 09/10/24 09/11/24
06:59 06:59 06:59
Intake Total 1500 / 1500 480 / 480 120 / 120
Balance 1500 / 1500 480 / 480 120 / 120
[2024-09-10 11:25] VITALS: BP 104/57
[2024-09-10 12:17] LABS: Glucose - Point of Care 149 mg/dl (70-99)
[2024-09-10] MEDS: COLACE 100 MG PO (13:04)
--- NOTE | 2024-09-10 14:17 | PTOTSP ---
ST Follow-Up
Pt currently presents with clinical signs of mild oral dysphagia characterized by prolonged mastication and bolus formation as well as reduced bolus formation/clearance. No overt s/s of penetration/aspiration noted at bedside.
Recommendations:
- Upgrade diet to soft bite sized solids; continue thin liquids and continue meds whole in puree.
- Aspiration and reflux precautions: HOB upright for all PO intake and for 60 minutes after PO intake; small bites/sips; alternate bites/sips; slow intake rate.
- REFRACTORY REPAIRER to f/u re: diet tolerance and to trial further diet upgrades.
[2024-09-10 15:43] VITALS: BP 108/58
[2024-09-10 16:53] LABS: Glucose - Point of Care 145 mg/dl (70-99)
[2024-09-10 19:43] VITALS: BP 113/48
[2024-09-10] MEDS: NEURONTIN 200 MG PO (21:29)
[2024-09-10] MEDS: CRESTOR 10 MG PO (21:29)
[2024-09-10] MEDS: ROCEPHIN 1000 MG IV (21:30)
[2024-09-10] MEDS: STERILE WATER FOR INJECTION 10 ML IV (21:31)
[2024-09-10] MEDS: LANTUS 0.06 UNITS SC (21:32)
[2024-09-10 21:33] LABS: Glucose - Point of Care 156 mg/dl (70-99)
[2024-09-10 23:42] VITALS: BP 108/77
--- NOTE | 2024-09-11 02:52 | DOWNTIME ---
There was a [employer] Downtime on 09/11/2024 from 0100 to 09/11/2023 at 0235 . Downtime documentation of patient's care, including medication administrations, has been reconciled in the electronic record per guidelines. Refer to the
patient's paper chart under the miscellaneous tab to see printed paper medication records and downtime forms.
[2024-09-11 03:34] VITALS: BP 131/60
[2024-09-11 05:14] VITALS: BMI 31.9
[2024-09-11] MEDS: SYNTHROID 75 MCG PO (05:17)
[2024-09-11 07:20] VITALS: BP 122/60
[2024-09-11 07:31] LABS: Glucose - Point of Care 115 mg/dl (70-99)
[2024-09-11] MEDS: NOVOLOG FLEXPEN-LOW RESISTANCE SC ×2 (08:15→12:17)
[2024-09-11] MEDS: FARXIGA 10 MG PO (08:58)
[2024-09-11] MEDS: FEOSOL 325 MG PO (08:58)
[2024-09-11] MEDS: IMDUR (EXTENDED RELEASE) 30 MG PO (08:58)
[2024-09-11] MEDS: BUMEX 2 MG PO (08:58)
[2024-09-11] MEDS: ASPIR LOW (ENTERIC COATED) 81 MG PO (08:58)
[2024-09-11] MEDS: SENOKOT 8.6 MG PO (08:58)
[2024-09-11] MEDS: MIRALAX 17 GRAMS PO (08:59)
[2024-09-11] MEDS: MIRAPEX 0.125 MG PO (08:59)
[2024-09-11] MEDS: LOVENOX 40 MG SC (08:59)
[2024-09-11] MEDS: COREG 6.25 MG PO (08:59)
[2024-09-11] MEDS: PROTONIX 40 MG PO (08:59)
--- NOTE | 2024-09-11 09:33 | W.PN.HOSP.TC ---
Addendum entered and electronically signed by Leora Carty MD 09/11/24 16:27:
addendum
Patient was seen by ID doctor, patient okay to go home on oral doxycycline.
Total discharge time spent to see the patient on the floor, examine the patient, review data and lab results, discuss discharge plan with patient, ID, nursing staff around 65 minutes
Original Note:
Today's Communication/Plan
-
Change Ab to Ertapenem,
Consult ID
Restart Aldactone
Assessment / Plan
Assessment / Plan
Physical Exam
General: No Apparent Distress
HEENT: Normocephalic, Atraumatic and Moist Mucous Membranes
Respiratory: Clear to Auscultation
Cardiac: Regular Rhythm and S1/S2; Negative Murmur, Rub or Gallop
GI: Soft, Nontender, Nondistended and Normal Bowel Sounds; Negative Organomegaly
Rectal: No bleeding
Musculoskeletal: No Edema
Skin: Negative Rash
Neuro: Nonfocal/Grossly Intact
Psych: Apparent Dementia
IMPRESSION:
83 y.o female with multiple comorbidities presenting to ED with fever, confusion, chills. Has positive u/a. Possible mid left lung opacity. She is not coughing but is requiring some oxygen. Cardiomegaly on xray without vascular congestion or
congestive heart failure. Initial blood pressure was soft but seemed to respond without any IV fluids. Lactate is negative. Renal function appears to be at baseline.
PLAN:
# UTI with ESBL E Coli
Afebrile
WBC normal now
s/p IV Rocephin will switch to Ertapenem, consulting ID
Negative blood culture
Appreciate ID help
# Chronic HF with preserved EF
- no signs of acute exacerbation
Daily weight
-Restarted carvedilol and isosorbide mononitrate
-Resumed Bumex, hydralazine and Aldactone
# Paroxysmal atrial fibrillation
- off apixaban from recent gi bleed
- continue Coreg
- continue low dose aspirin
# Moisture associated skin injury on bilateral buttocks, blanchable, continue with barrier ointment.
DM II
good blood glucose readings
-Resumed Farxiga
- Lantus 6 hs
- sliding scale insulin
# Chronic blood loss anemia
Recent EGD with no findings
Further OP follow up with GI with stable HGB, family declined colonoscopy
- continue oral iron supplementation
REI on CKD stage IIIb
- Resume diuretics for now
-Creatinine slowly improving. If no improvement check urine studies
DVT PPX - lovenox sq
Code status - full code
Total time spent to see the patient, examine the patient, review data and lab results, discuss treatment plan with patient, son, nursing staff around 55 minutes
Anticipated Discharge: 24 - 48 hours
Subjective/Interval History
-
Date of Service: September 11, 2024
Objective Data
-
Vital Signs:
Vital Signs
Temp Pulse Resp BP Pulse Ox
97.9 F 67 18 122/60 95
09/11/24 07:20 09/11/24 08:59 09/11/24 07:20 09/11/24 08:59 09/11/24 09:00
I&O
09/10/24 09/11/24 09/12/24
06:59 06:59 06:59
Intake Total 480 / 480 1080 / 1080
Balance 480 / 480 1080 / 1080
--- NOTE | 2024-09-11 10:19 | PTCARENOTE ---
Patient with critical lab value: +ESBL urine. Dr. Carty notified via TT. PT tx to [facility].
[2024-09-11] MEDS: INVANZ 60 MG IV (10:35)
--- NOTE | 2024-09-11 10:41 | PTCARENOTE ---
Received patient to room 425 awake and alert. Forgetful , able to make her needs known. Oriented to surroundings. Call ann in reach.
[2024-09-11 11:00] VITALS: BP 124/50
[2024-09-11 11:53] LABS: Glucose - Point of Care 139 mg/dl (70-99)
[2024-09-11] MEDS: ALDACTONE 12.5 MG PO (12:18)
[2024-09-11] MEDS: COLACE 100 MG PO (12:18)
--- NOTE | 2024-09-11 13:20 | CON.ID ---
Consultation
-
Date/Time Consultation Requested: September 11, 2024 0931
Date/Time Consultation Performed: September 11, 2024 1320
Requesting Provider: Dr. Jennie Carty
Performing Provider: Dr. Stephanie Mejia
Reason for Consultation: ESBL UTI
Chief Complaint / Past History
Chief Complaint
Fever
History of Present Illness
History of present illness obtained from review medical records since patient is a very poor historian. She is an 83-year-old female from [facility] with history of dementia, diabetes mellitus who presented to the hospital on August
due to fever and shaking chills. In the ER her temperature was 101.6, white count 11.4. Chest x-ray negative. COVID and influenza negative. She was started on ceftriaxone for presumed UTI. Urine culture resulted as ESBL E. coli. In the
meantime patient's fever has resolved. Mental status is at baseline. Today patient reports she feels well. Her appetite is good. She wants to go back to her place. She denies any urinary symptoms at this time.
Past History
Additional Past Medical History:
Dementia
Hypothyroidism
Diabetes mellitus
Hypertension
CAD
Atrial fibrillation
CHF
Allergy History:
nitrofurantoin Allergy (Unknown, Verified 09/07/24 18:04)
Unknown
Medications Reviewed: Yes
Current Antibiotics:
s/p ceftriaxone x 4d
Ertapenem day 1
Social History
Tobacco: Non-Smoker
Alcohol: None
Drug: None
Living: [facility]
Family History
Family History: Not Pertinent
Review of Systems
Review of Systems
HEENT: Negative Sinus Problems or Headache
Respiratory: Negative Dyspnea or Cough
Gasteroenterology: Negative Nausea, Vomiting or Diarrhea
Genital / Urological: Negative Dysuria or Flank Pain
Endocrine: Negative Weakness
Neurological: Negative Dizziness
All systems: All other systems were reviewed and were negative
Vital Signs
Temp Pulse Resp BP Pulse Ox
97.6 F 66 21 124/50 96
09/11/24 11:00 09/11/24 11:00 09/11/24 11:00 09/11/24 11:00 09/11/24 11:00
Physical Exam
Physical Exam
Constitutional: No Acute Distress and Comfortable
Eyes: No Conjunctival Hemorrhage and Sclera Anicteric
Cardiovascular: Regular Rate and S1/S2
Pulmonary: Clear
Gastrointestinal: Soft, Non Tender, Non Distended and Normal Bowel Sounds
Genito-Urinary: Negative CVA Tenderness
Extremities: Negative Edema
Neurological: Awake and Alert; Negative Meningeal Signs
Lab / Diagnostic Study Results
09/10/24 06:34
09/10/24 06:34
Abs Immat Gran (auto) 0.1 10^3/uL (0-0.05) H 09/09/24 05:17
Absolute Neuts (auto) 5.2 10^3/uL (1.4-6.5) 09/09/24 05:17
Absolute Lymphs (auto) 2.1 10^3/uL (1.2-3.4) 09/09/24 05:17
Absolute Monos (auto) 0.8 10^3/uL (0.1-0.6) H 09/09/24 05:17
Absolute Basos (auto) 0.0 10^3/uL (0-0.2) 09/09/24 05:17
Immature Gran % 0.6 % (0-0.5) H 09/09/24 05:17
Neutrophils % 62.5 % (42.2-75.2) 09/09/24 05:17
Lymphocytes % 24.7 % (20.5-51.1) 09/09/24 05:17
Monocytes % 9.7 % (1.7-9.3) H 09/09/24 05:17
Eosinophils % 2.0 % (0-6) 09/09/24 05:17
Basophils % 0.5 % (0-2) 09/09/24 05:17
Lactic Acid Cancelled 09/07/24 22:15
Procalcitonin 0.52 ng/ml (0.0-0.25) H 09/08/24 06:02
Ur Squamous Epith Cells None seen /LPF (Few) 09/07/24 20:09
Microbiology Results
Micro:
09/09/24 15:02 Blood Culture - Preliminary
Blood/Venous No Growth in 24 hours- Final report to follow
09/07/24 20:09 Urine Culture - Final
Urine Escherichia coli - ESBL
Lactobacillus species
09/08/24 03:28 MRSA Screen - Final
Nose No Methicillin Resistant Staphylococcus aureus isolated.
09/07/24 18:13 Influenza Types A & B (EMELY) - Final
Nasal Swab Negative for Influenza A & B, NAAT
Negative results must be combined with clinical observations
and patient history.
Nucleic Acid Amplification test (NAAT)performed on the
bepretty platform.
Urine Culture Final 09/11/24-0855
CC: 100,000 CFU/ML Escherichia coli - ESBL
CC: Greater than 100,000 CFU/ML Lactobacillus species
Resistance due to extended spectrum beta lactamase.
Deacreased activity may occur with penicillins,
penicillin/inhibitor combinations, cephalosporins, and
monobactams.
Isolation Precautions Required
Called to [id number] on 09/11/24 at 0853 by [facility]
Organism 1 Escherichia coli - ESBL
1. Escherichia coli - ESBL
M.I.C. RX
--------- ---
Amoxicillin/Potas. Clavulanate 08/03 I
Ampicillin >16 R
Ampicillin/Sulbactam / I
Aztreonam >16 R
Cefazolin >16 R
Cefepime >16 R
Ceftazidime >16 R
Ceftriaxone >2 R
Ertapenem <=0.5 S
Ciprofloxacin >2 R
Gentamicin >8 R
Meropenem <=1 S
Nitrofurantoin-Urine Only <=32 S
Piperacillin/Tazobactam <=8 S
Tetracycline <=4 S
Tobramycin >8 R
Trimethoprim/Sulfamethoxazole >2/38 R
Assessment / Plan
# Fever and leukocytosis resolved.
# ESBL-Ecoli UTI
-blood cx neg
- Can transition Ertapenem to doxycycline 100mg po bid through 09/17/24.
# Conditions [employer]
Dementia
Hypothyroidism
Diabetes mellitus
Hypertension
CAD
Atrial fibrillation
CHF
Care Review
Plan reviewed with: Physician (Dr. Carty)
[2024-09-11 15:00] VITALS: BP 101/51
--- NOTE | 2024-09-11 15:31 | CM ---
MD entered order for discharge.
Spoke with Agustin and Safia from [facility].They are aware of ESBL and abx po she will be on . Clinical faxed to [phone].
Bed available for her return to [facility] today.
Spoke with son Daquan [phone] . reviewed dc information . Explained IMM all questions answered and he agreed with IMM and dc.
Medical nec form completed
[facility]
report [phone]
fax [phone]
PLAN Return to [facility] at [facility]
--- NOTE | 2024-09-11 16:27 | W.DCSUMMARY ---
Discharge Summary
Discharge Data
Date of Admission: 09/07/24
Date of Discharge: 09/10/24
-
Pending Results: No
Hospital Course
83 years old female presented to the hospital with fever and shakes. She was lethargic. Patient was diagnosed with sepsis-like picture on admission with fever, lethargy, leukocytosis, mild hypoxia. COVID and influenza tests came back negative.
Chest radiography showed low lung volumes with linear opacity in the mid left lung. Urine test was positive for leukocyte Estrace and white blood cells. Patient received intravenous antibiotic for possible pneumonia/urinary tract infection. Her
respiratory status improved significantly. She did not have cough or hypoxia. Blood culture did not show any growth. Urine culture showed extended spectrum beta-lactamase E. coli. Patient was evaluated by infectious disease doctor. She received
intravenous antibiotic and ID doctor recommended oral doxycycline to finish course after discharge. Gabapentin dose was reduced to improve her mental status. Patient seemed to be back to normal status. Speech therapy followed the patient and
advance diet. Patient was off her Eliquis due to recent gastrointestinal bleeding. She was kept on aspirin. She was noticed to be on subcu Lovenox which was subsequently held (to avoid further skin or bruising) on discharge to be reviewed in
outpatient setting. Patient remained hemodynamically stable and was discharged back to assisted in a stable condition.
Discharge Plan
-
Patient Disposition: Prison/SNF
Discharge Diagnosis/Procedures: ESBL-Ecoli UTI, continue oral doxycycline, last dose on 09/17/24.
Toxic metabolic encephalopathy, we reduced the dose of gabapentin.
Home medications include subcu Lovenox daily shots, that was held, please review this medicine with the primary care doctor.
Diet: As tolerated and Diabetic, Carb Controlled
Activity Restrictions/Additional Instructions:
Skin Care Instructions
Buttocks/sacrum: barrier cream daily after bathing and prn soilage
Referrals:
UNKNOWN - PT DOES,NOT KNOW [Family Provider] -
Prescriptions:
New
doxycycline hyclate 100 mg Capsule
100 mg PO Q12 Qty: 14 0RF
Continued
acetaminophen 325 mg Tablet
650 mg PO Q6HPRN PRN (Reason: mild pain)
carvedilol [Coreg] 6.25 mg Tablet
6.25 mg PO BID
insulin glargine 100 unit/mL Solution
6 unit SC HS
bumetanide 2 mg Tablet
2 mg PO DAILY
isosorbide mononitrate 30 mg Tablet Extended Release 24 Hr
30 mg PO DAILY
hydralazine 25 mg Tablet
25 mg PO TID
spironolactone 25 mg Tablet
12.5 mg PO NOON
levothyroxine 75 mcg Tablet
75 mcg PO DAILY
magnesium hydroxide [Milk of MagnZenMate] 400 mg/5 mL Suspension
30 ml PO U75OXME PRN (Reason: if no bm 3 days)
bisacodyl 10 mg Suppository
10 mg [place] DAILYPRN PRN (Reason: if mom ineffective after 24 hours)
pramipexole 0.125 mg Tablet
0.125 mg PO BID
docusate sodium 100 mg Capsule
100 mg PO NOON
omeprazole 20 mg Capsule,Delayed Release(Dr/Ec)
20 mg PO DAILY
insulin lispro [Humalog KwikPen Insulin] 100 unit/mL Insulin Pen
1 sliding scale dose SC ACHS
Rx Instructions:
150-200=2u,201-250=4u,251-300=6u,301-350=8u,351-400=10u
rosuvastatin 10 mg Tablet
10 mg PO HS
cholecalciferol (vitamin D3) [Vitamin D3] 50 mcg (2,000 unit) Tablet
50 mcg PO DAILY
dapagliflozin propanediol 10 mg Tablet
10 mg PO DAILY
sennosides [senna] 8.6 mg Tablet
8.6 mg PO DAILY
polyethylene glycol 3350 [Miralax] 17 gram Powder In Packet
17 g PO DAILY
ferrous sulfate 325 mg (65 mg iron) Tablet
325 mg PO BID
albuterol sulfate 2.5 mg/0.5 mL Solution For Nebulization
2.5 mg INHALATION R Q6HPRN PRN (Reason: wheezing/cough)
aspirin 81 mg Capsule
81 mg PO DAILY
Changed
gabapentin 300 mg Capsule
200 mg PO HS Qty: 0 0RF
Discontinued
enoxaparin 40 mg/0.4 mL Syringe
40 mg SC DAILY
Discharge Orders:
Discharge Patient (As Directed); Ordered 09/11/24
Ordered By: Leora Carty
Discharge Date and Time
Print Language: PANAMANIAN
[2024-09-11 16:51] LABS: Glucose - Point of Care 171 mg/dl (70-99)
[2024-09-11] MEDS: NOVOLOG FLEXPEN-LOW RESISTANCE 1 UNITS SC (16:55)
[2024-09-11 19:28] VITALS: BP 102/67
--- NOTE | 2024-09-11 20:16 | PTCARENOTE ---
Patient transferred via [facility] around 19:35 via stretcher. Vitals stable. Transport papers given to Transport. Report called by previous shift to [facility]. IV removed and tele removed by previous shift. No signs of distress
noted.
--- NOTE | 2024-09-12 16:37 | CM ---
Facility did not receive d/c summary and instructions, will faxed to [phone]
== END 2024-09-11 19:45 | DRG 871 ==
LOC: 4 WEST ACU 22:23
PROVIDERS: Hospitalist; ADMITTING PHYSICIAN Internal Medicine; ATTENDING PHYSICIAN Internal Medicine; EMERGENCY PHYSICIAN Emergency Medicine; OTHER PHYSICIAN Internal Medicine Infectious Disease
DX: A41.9 Sepsis, unspecified organism (principal); G92.8 Other toxic encephalopathy; R65.21 Severe sepsis with septic shock; N12 Tubulo-interstitial nephritis, not specified as acute or chronic; Z16.12 Extended spectrum beta lactamase (ESBL) resistance; I50.32 Chronic diastolic (congestive) heart failure; N17.9 Acute kidney failure, unspecified; E87.1 Hypo-osmolality and hyponatremia; I48.92 Unspecified atrial flutter; I13.0 Hypertensive heart and chronic kidney disease with heart failure and stage 1 through stage 4 chronic kidney disease, or unspecified chronic kidney disease; Z11.52 Encounter for screening for COVID-19; B96.20 Unspecified Escherichia coli [E. coli] as the cause of diseases classified elsewhere; F03.90 Unspecified dementia, unspecified severity, without behavioral disturbance, psychotic disturbance, mood disturbance, and anxiety; E03.9 Hypothyroidism, unspecified; E11.9 Type 2 diabetes mellitus without complications; I25.10 Atherosclerotic heart disease of native coronary artery without angina pectoris; I48.91 Unspecified atrial fibrillation; I48.0 Paroxysmal atrial fibrillation; D50.0 Iron deficiency anemia secondary to blood loss (chronic); N18.32 Chronic kidney disease, stage 3b; Z79.01 Long term (current) use of anticoagulants; Z79.4 Long term (current) use of insulin; Z79.899 Other long term (current) drug therapy
CPT/HCPCS: 51701; 71046; 80048; 80053; 81003; 81015; 82962; 83605; 83735; 84145; 85025; 85027; 86850; 86900; 86901; 87040; 87070; 87077; 87086; 87186; 87502; 87811; 92526; 92610; 93005; 94640; 96374; 97163; 97166; 99285; J1335